=== PATIENT | female | born 1955 | race Caucasian/White ===

== ENCOUNTER 2021-01-05 15:45 | Outpatient (REF) | payer MEDICARE, SELFPAY ==
--- NOTE | ~2021-01-05 | MM_ITS ---
EXAMINATION: MM SCREENING DIGITAL BREAST TOMOSYNTHESIS, BILATERAL CLINICAL INFORMATION: Screening. Asymptomatic. The lifetime risk of breast cancer based on the Tyrer-Cuzick Model is 7%. COMPARISON: Mammography: 10/29/2018, and prior studies dating back to 06/25/2012 TECHNIQUE: Digital breast tomosynthesis is performed in both the craniocaudal and mediolateral oblique views along with computer-aided detection (CAD). Synthesized 2D images are generated from the tomosynthesis. FINDINGS: The breasts are heterogeneously dense, which may obscure small masses (ACR BI-RADS breast composition Category c). There are no significant masses, abnormal calcifications, or other abnormalities. There are shifting fibroglandular densities from year to year based on positioning. No developing density. The axilla and skin contours are unremarkable. MM/MM tomosynthesis screening BI IMPRESSION: No significant changes from prior studies. ASSESSMENT: BI-RADS 2: Benign RECOMMENDATION: Routine annual mammography screening. This patient's information was entered into a reminder system with a target due date for their next mammogram.
== END 2021-01-05 15:46 | disposition home or self-care (01) ==
LOC: HO.MAMMO 15:45
PROVIDERS: PCP Internal Medicine; Visit Provider Internal Medicine
DX: Z12.31 Encounter for screening mammogram for malignant neoplasm of breast (principal)
CPT/HCPCS: 77063; 77067

== ENCOUNTER 2022-01-08 14:19 | Outpatient (REF) | payer OTHER, SELFPAY ==
--- NOTE | ~2022-01-08 | MM_ITS ---
EXAMINATION: MM SCREENING DIGITAL BREAST TOMOSYNTHESIS, BILATERAL CLINICAL INFORMATION: Screening. Asymptomatic. The lifetime risk of breast cancer based on the Tyrer-Cuzick Model is 9%. COMPARISON: Mammography: 01/05/2021, 10/29/2018, 10/18/2017 TECHNIQUE: Digital breast tomosynthesis is performed in both the craniocaudal and mediolateral oblique views along with computer-aided detection (CAD). Synthesized 2D images are generated from the tomosynthesis. FINDINGS: The breasts are heterogeneously dense, which may obscure small masses (ACR BI-RADS breast composition Category c). There are no significant masses, abnormal calcifications, or other abnormalities. Parenchymal pattern is similar to prior studies. No developing density or architectural abnormality. The axilla are unremarkable. No significant changes. MM/MM tomosynthesis screening BI IMPRESSION: No mammographic evidence of malignancy. ASSESSMENT: BI-RADS 1: Negative RECOMMENDATION: Routine annual mammography screening. This patient's information was entered into a reminder system with a target due date for their next mammogram.
== END 2022-01-08 14:20 | disposition home or self-care (01) ==
LOC: HO.MAMMO 14:19
PROVIDERS: PCP Internal Medicine; Visit Provider Obstetrics & Gynecology
DX: Z12.31 Encounter for screening mammogram for malignant neoplasm of breast (principal)
CPT/HCPCS: 77063; 77067

== ENCOUNTER 2022-01-15 18:00 | Emergency (ER) | payer OTHER, SELFPAY ==
[2022-01-15 19:42] VITALS: BP 157/55; PULSE 72; RESP 16; TEMP 36.6; O2SAT 98; BMI 27.1
[2022-01-15 21:18] VITALS: BP 175/77; PULSE 75; RESP 14; O2SAT 98
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
[2022-01-15] MEDS: Cyclobenzaprine HCl 10 MG TABLET PO (22:03)
[2022-01-15 22:23] VITALS: BP 155/85; PULSE 76; RESP 16; O2SAT 99
== END 2022-01-15 22:25 | disposition home or self-care (01) ==
PROVIDERS: Emergency Provider Internal Medicine; PCP Internal Medicine
DX: Z04.1 Encounter for examination and observation following transport accident (principal)
CPT/HCPCS: 99283; 99284

== ENCOUNTER 2022-10-15 18:09 | Outpatient (REF) | payer OTHER, SELFPAY ==
[2022-10-15 18:54] LABS: Influenza A PCR NEGATIVE (Negative); Influenza B PCR NEGATIVE (Negative); Resp Syncy Virus RNA Qual PCR NEGATIVE (Negative); SARS COV2 PCR INHOUSE POSITIVE (Negative)
== END 2022-10-15 18:10 | disposition home or self-care (01) ==
LOC: HO.LNP 18:09
PROVIDERS: Visit Provider Internal Medicine
DX: Z20.822 Contact with and (suspected) exposure to COVID-19 (principal); R43.9 Unspecified disturbances of smell and taste
CPT/HCPCS: 0241U

== ENCOUNTER 2023-04-10 13:51 | Outpatient (REF) | payer OTHER, SELFPAY ==
--- NOTE | ~2023-04-10 | MM_ITS ---
EXAMINATION: MM SCREENING DIGITAL BREAST TOMOSYNTHESIS, BILATERAL CLINICAL INFORMATION: Screening. Asymptomatic. The lifetime risk of breast cancer based on the Tyrer-Cuzick Model is 3%. COMPARISON: Mammography: 2019. TECHNIQUE: Digital breast tomosynthesis is performed in both the craniocaudal and mediolateral oblique views along with computer-aided detection (CAD). Synthesized 2D images are generated from the tomosynthesis. FINDINGS: The breasts are heterogeneously dense, which may obscure small masses (ACR BI-RADS breast composition Category c). There are no significant masses, abnormal calcifications, or other abnormalities. MM/MM tomosynthesis screening BI IMPRESSION: No mammographic evidence of malignancy. ASSESSMENT: BI-RADS BI-RADS 1 - Negative RECOMMENDATION: Routine annual mammography screening. 1 year F/U This examination should not preclude the clinical evaluation of a suspicious palpable abnormality. This patient's information was entered into a reminder system with a target due date for their next mammogram.
== END 2023-04-10 13:52 | disposition home or self-care (01) ==
LOC: HO.MAMMO 13:51
PROVIDERS: PCP Obstetrics & Gynecology; Visit Provider Obstetrics & Gynecology
DX: Z12.31 Encounter for screening mammogram for malignant neoplasm of breast (principal)
CPT/HCPCS: 77063; 77067

== ENCOUNTER → 2023-04-10 14:15 | Outpatient (BNV) | payer OTHER, SELFPAY | PROVIDERS: PCP Obstetrics & Gynecology; Visit Provider Radiology Diagnostic Radiology | DX: Z12.31 Encounter for screening mammogram for malignant neoplasm of breast (principal) | CPT/HCPCS: 77063; 77067 ==

== ENCOUNTER 2023-08-14 01:24 | Emergency (ER) | payer OTHER, SELFPAY ==
--- NOTE | 2023-08-14 | ECG_ITS ---
Test Reason : cp Blood Pressure : / mmHG Vent. Rate : 070 BPM Atrial Rate : 070 BPM P-R Int : 170 ms QRS Dur : 110 ms QT Int : 434 ms P-R-T Axes : 083 016 062 degrees QTc Int : 468 ms Sinus rhythm with occasional Premature ventricular complexes Left bundle branch block Abnormal ECG When compared with ECG of 04-OCT-2019 18:21, No significant changes seen Referred By: Generic ED Physician Electronically Signed By:KELSEY BARLOW
--- NOTE | ~2023-08-14 | XR_ITS ---
EXAMINATION: XR CHEST CLINICAL INFORMATION: Chest pain. COMPARISON: 10/04/2019. TECHNIQUE: Frontal view of the chest was obtained. FINDINGS: No significant abnormality is noted involving the heart, lungs, mediastinum, bony thorax or soft tissues. XR/XR chest 1V IMPRESSION: Unremarkable examination.
[2023-08-14 01:36] VITALS: BP 148/70; PULSE 66; RESP 18; TEMP 36.6; O2SAT 96; BMI 25.7
--- NOTE | 2023-08-14 01:38 | ED.CHESTPAIN ---
HPI - Chest Pain General Chief Complaint: Chest Pain Stated Complaint: Chest pain Time Seen by Provider: 08/14/23 01:34 Source: patient and language interpreter Mode of arrival: ambulatory Limitations: no limitations History of Present Illness HPI narrative: 67 yo female with PMH of hypothyroidism, HTN here with c/o nighttime palpitations but no associated symptoms just saw science faculty member at [facility] with ECHO and holter but no results. She noted tonight at rest at [facility] chest tightness starting 9pm no other associated symptoms. No hx of CAD but + fam hx. She notes it does not spread anyhwere. No travel no hx of VTE MD complaint: chest pain Onset (ago): hour(s) (9pm on 08/13) Timing of current episode: episodic Prior episodes: Yes Onset: during rest Pain location: substernal Pain radiation: none Severity: mild Quality: aching Relieving factors: nothing Exacerbating factors: nothing Associated symptoms: palpitations Treatment prior to arrival: none Related Data Home Medications Medication Instructions Recorded Confirmed clonazepam 1 mg tablet 1 mg PO BID PRN 12/25/22 fluticasone propionate 50 2 spray intranasal DAILY 12/25/22 mcg/actuation nasal spray,suspension latanoprost 0.005 % eye drops 1 drp ophthalmic (eye) BEDTIME 12/25/22 levothyroxine 25 mcg tablet 25 mcg PO DAILY 12/25/22 levothyroxine 50 mcg tablet 50 mcg PO DAILY 12/25/22 lisinopril 5 mg tablet 5 mg PO DAILY 12/25/22 loratadine 10 mg tablet 10 mg PO DAILY PRN allergies 12/25/22 mirtazapine 7.5 mg tablet 7.5 mg PO BEDTIME 12/25/22 Previous Rx's Medication Instructions Recorded azithromycin 250 mg tablet See Rx Instructions PO .COMPLEX #6 10/15/22 (Zithromax) tabs cefuroxime axetil 500 mg tablet 500 mg PO Q12H 7 days #14 tabs 12/25/22 erythromycin 5 mg/gram (0.5 %) eye 1 appl ophthalmic-Right Q4H 7 days 12/25/22 ointment #3.5 grams Allergies Allergy/AdvReac Type Severity Reaction Status Date / Time aspirin Allergy Mild SWELLING Unverified 12/25/22 15:47 codeine Allergy Mild SWELLING Unverified 12/25/22 15:47 Review of Systems Review of Systems: Constitutional : No Weight loss, No Fever, No Chills ENT/Mouth : No sore throat, No Rhinorrhea Eyes: No Eye Pain, No Swelling Cardiovascular : pos Chest Pain, no SOB, no Dyspnea on Exertion, No Orthopnea, No Edema, pos Palpitations Respiratory : No Cough, No Sputum Gastrointestinal : pos Nausea, No Vomiting, No Diarrhea, No abdominal Pain, No Hematochezia, No Melena Genitourinary : No Dysuria, No Urinary Frequency Musculoskeletal : No joint pain, No Myalgias, No Joint Swelling Skin : No Skin Lesions, No rash Neuro : No Weakness, No Numbness, No Dizziness, No Headache Psych : No Anxiety/Panic, No Depression Heme/Lymph: No Bruising, No Lymphadenopathy Endocrine : No Polyuria, No Polydipsia All other systems reviewed and are negative [facility] Past Medical History Source: old records reviewed Medical History Hypothyroidism HTN (hypertension) Social History Social History Patient Tobacco Use Status: Never used Tobacco Smoked in Last 30 Days: No Use of substances other than those prescribed or required for medical reasons: No Advance Directives: No Advance Directives Information Provided: Yes Physical Exam Vital Signs: Vital Signs: Last Vital Signs Temp 97.8 F 08/14/23 01:36 Pulse 64 08/14/23 03:05 Resp 15 08/14/23 03:05 BP 163/79 H 08/14/23 03:05 Pulse Ox 95 08/14/23 03:05 O2 Del Method Room Air 08/14/23 03:05 BMI result Body Mass Index 25.7 Appearance: Alert. Oriented X3. No acute distress. Eyes: Pupils equal, round and reactive to light. ENT: Pharynx normal. Neck: Normal inspection. Neck supple. CVS: Normal heart rate and rhythm. Pulses normal. Respiratory: No respiratory distress. Breath sounds normal. Abdomen: Soft and nontender. Skin: Skin warm and dry. Normal skin color. Normal skin turgor. Extremities: No lower extremity edema. No calf ttp Neuro: Oriented X 3. No motor deficit. No sensory deficit. Course Course Course Narrative: son came to get patient and relayed that he thinks it was food tonight as she was eating heavy spicy food like chorizo and she never does that. Medical Decision Making Medical Decision Making [facility] Narrative: 67 yo female with PMH of hypothyroidism, HTN being worked up for palpitations now presents with new chest pain - no travel or hx of VTE. no associated symptoms, no known CAD. Will obtain 6h trop, EKG, CXR, lytes. Will try to get records from [facility] - somewhat atypical chest pain Differential Diagnosis Differential Diagnoses: The differential diagnosis associated with the presentation includes chest pain, atypical chest pain, lyte abnormality Admission/Observation Consideration of admission/observation: Escalation of care including admission/observation considered 6hr trop flat, has outpatinet cardiology follow up, EKG nonspecific stable for DC Lab Data [facility] Lab Attestation statement: I reviewed the patient's lab results. 08/14/23 02:57 08/14/23 02:57 Labs: Lab Results 08/14/23 Range/Units 02:57 WBC 8.3 (4.8-10.8) X10*3/uL RBC 4.09 L (4.20-5.50) X10*6/uL Hgb 11.5 L (12.0-16.0) g/dl Hct 35.0 L (37.0-47.0) % MCV 85.6 (80.0-98.0) fL MCH 28.1 (27.0-33.0) pg MCHC 32.9 (31.0-35.0) g/dl RDW 13.6 (11.0-16.0) % Plt Count 170 (160-400) X10*3/uL MPV 10.5 (9.4-12.3) fL Immature Gran % (Auto) 0.1 (0.0-0.4) % Neut % (Auto) 65.1 (45-73) % Lymph % (Auto) 25.9 (20-40) % [place] % (Auto) 8.0 (2-11) % Eos % (Auto) 0.7 (0-4) % Baso % (Auto) 0.2 (0-2) % Lymph # (Auto) 2.2 (1.2-4.9) X10*3/uL [place] # (Auto) 0.7 (0.1-1.2) X10*3/uL Eos # (Auto) 0.1 (0.0-0.4) X10*3/uL Baso # (Auto) 0.0 (0.0-0.2) X10*3/uL Abs Immat Gran (auto) 0.01 (0.00-0.03) X10*3/uL Absolute Neuts (auto) 5.4 (2.0-8.3) x10*3/uL Absolute Nucleated RBC 0.000 (0.0-0.012) X10*3/uL Nucleated RBC % (auto) 0.0 (0.0-0.2) /100WBC Sodium 143 (135-145) mmol/L Potassium 3.6 (3.3-5.1) mmol/L Chloride 107 (96-108) mmol/L Carbon Dioxide 30 H (22-29) mmol/L Anion Gap 10 L (12-20) BUN 10 (9-16) mg/dL Creatinine 0.73 (0.5-1.4) mg/dL Estim Creat Clear Calc 66.3 Estimated GFR > 60 Random Glucose 97 (60-115) mg/dL Calcium 9.7 (8.4-10.2) mg/dL Magnesium 2.1 (1.6-2.6) mg/dL Troponin I High Sens < 2.7 (<3.5-17.0) ng/L TSH 1.81 (0.32-4.0) uIU/mL Independent Interpretation I performed an independent interpretation of an: EKG and Plain X-Ray (normal ) Interpretation: Rate: 70 Rhythm: NSR with occ PVCs [place]: normal Normal P waves. Normal JAIME. Normal QRS complex. Poor R wave progression ST T wave : no HEIDI, nonspecific ST T wave changes in lateral leads qTC: normal prior studies: no prior The study has been interpreted contemporaneously by me. . Radiology Impression Discussion of test interpretation with radiology: I have reviewed the radiologist's reading. Discharge Plan Discharge Clinical Impression: Atypical chest pain, Heart palpitations Patient Disposition: Home, Self-Care Instructions: Chest Pain (ED), Heart Palpitations (ED) Additional Instructions: your tests for electrolytes, heart blood tests and chest xray were normal and reassuring. please call and follow up with your science faculty member this week. return for any worsening symptoms or concerns. dominick pruebas de electrolitos, an?lisis de niurka del coraz?n y radiograf?a de t?rax fueron normales y tranquilizadoras. Llame y nestor un seguimiento con jensen cardi?logo esta semana. Regrese si tiene alg?n s?ntoma o inquietud que empeore. Prescriptions: No Action azithromycin [Zithromax] 250 mg tablet See Rx Instructions PO .COMPLEX Qty: 6 0RF Rx Instructions: take 500 mg today (day 1), then 250 mg for 4 days (days 2-5) PO clonazepam 1 mg tablet 1 mg PO BID PRN fluticasone propionate 50 mcg/actuation spray,suspension 2 spray intranasal DAILY latanoprost 0.005 % drops 1 drp ophthalmic (eye) BEDTIME loratadine 10 mg tablet 10 mg PO DAILY PRN (Reason: allergies) lisinopril 5 mg tablet 5 mg PO DAILY levothyroxine 50 mcg tablet 50 mcg PO DAILY mirtazapine 7.5 mg tablet 7.5 mg PO BEDTIME levothyroxine 25 mcg tablet 25 mcg PO DAILY erythromycin 5 mg/gram (0.5 %) ointment 1 appl ophthalmic-Right Q4H 7 Days Qty: 3.5 1RF Rx Instructions: Apply to right eye every 4 hours while awake. cefuroxime axetil 500 mg tablet 500 mg PO Q12H 7 Days Qty: 14 0RF Interventions: ED Discharge Assessment Last Done: 08/14/23 03:58 Discharge Date/Time: 08/14/23 03:59 Print Language: Azerbaijani
--- NOTE | 2023-08-14 02:04 | PC.NURSE ---
pt a&o, pt change into hospital attire, placed on bedside monitor. Labs collected and sent.
[2023-08-14 03:03] LABS: MANUAL DIFF FLAG NO
[2023-08-14 03:05] VITALS: BP 163/79; PULSE 64; RESP 15; O2SAT 95
[2023-08-14 03:09] LABS: Basophils Percent Auto 0.2 % (0-2); Eosinophils Absolute Auto 0.1 X10*3/uL (0.0-0.4); Eosinophils Percent Auto 0.7 % (0-4); Hemoglobin 11.5 g/dl (12.0-16.0); Imm Gran Abs Auto 0.01 X10*3/uL (0.00-0.03); Imm Gran Pct Auto 0.1 % (0.0-0.4); Lymphocytes Absolute Auto 2.2 X10*3/uL (1.2-4.9); Lymphocytes Percent Auto 25.9 % (20-40); Mean Corpuscular HGB Conc 32.9 g/dl (31.0-35.0); Mean Corpuscular Hemoglobin 28.1 pg (27.0-33.0); Mean Corpuscular Volume 85.6 fL (80.0-98.0); Mean Platelet Volume 10.5 fL (9.4-12.3); Monocytes Absolute Auto 0.7 X10*3/uL (0.1-1.2); Neutrophils Absolute Auto 5.4 x10*3/uL (2.0-8.3); Neutrophils Percent Auto 65.1 % (45-73); Platelet Count 170 X10*3/uL (160-400); Red Blood Count 4.09 X10*6/uL (4.20-5.50); Red Cell Distribution Width 13.6 % (11.0-16.0); White Blood Count 8.3 X10*3/uL (4.8-10.8)
[2023-08-14 03:17] LABS: Anion Gap 10 (12-20); Blood Urea Nitrogen 10 mg/dL (9-16); Calcium 9.7 mg/dL (8.4-10.2); Carbon Dioxide 30 mmol/L (22-29); Chloride 107 mmol/L (96-108); Creatinine Clr Calc Pharmacy 66.3; Estimated Glomerular Filt Rate > 60; Glucose Random 97 mg/dL (60-115); Potassium 3.6 mmol/L (3.3-5.1); Sodium 143 mmol/L (135-145)
[2023-08-14 03:25] LABS: Magnesium 2.1 mg/dL (1.6-2.6)
[2023-08-14 03:27] LABS: Troponin-I High Sensitivity < 2.7 ng/L (<3.5-17.0)
[2023-08-14 03:39] LABS: TSH reflex Free T4 1.81 uIU/mL (0.32-4.0)
--- NOTE | 2023-08-14 03:57 | PC.NURSE ---
Reviewed discharge instruction with pt, pt verbalized understanding, pt denies any chest pain at this time upon discharge, pt has a steady gait.
== END 2023-08-14 03:59 | disposition home or self-care (01) ==
PROVIDERS: Emergency Provider Emergency Medicine
DX: R07.89 Other chest pain (principal); R00.2 Palpitations; I10 Essential (primary) hypertension; Z79.899 Other long term (current) drug therapy
CPT/HCPCS: 36415; 71045; 80048; 83735; 84443; 84484; 85025; 93005; 99283; 99285

== ENCOUNTER → 2023-08-14 01:30 | Outpatient (BNV) | payer OTHER, SELFPAY | PROVIDERS: Emergency Provider Emergency Medicine; Visit Provider Internal Medicine | DX: I49.3 Ventricular premature depolarization (principal); R94.31 Abnormal electrocardiogram [ECG] [EKG] | CPT/HCPCS: 93010 ==

== ENCOUNTER 2024-04-14 12:48 | Outpatient (REF) | payer OTHER, SELFPAY ==
--- NOTE | ~2024-04-14 | MM_ITS ---
EXAMINATION: BONE DENSITOMETRY CLINICAL INDICATION: Asymptomatic menopausal state. COMPARISON: Baseline BD dated 05/11/2010. TECHNIQUE: Using a [employer] DXA System (software version: 13.1) manufactured by [employer], dual-energy x-ray absorptiometry was performed of the lumbar spine and left hip. The images are of good technical quality. Summary results are attached. FINDINGS: LEFT FEMUR, NECK: Current: BMD 0.721 g/cm2, Z-score -0.6, T-score -2.3, osteopenia. Baseline: BMD 0.895 g/cm2. LEFT FEMUR, TOTAL: Current: BMD 0.851 g/cm2, Z-score 0.2, T-score -1.2, osteopenia, 12.0% decrease from baseline (<5% change is not significant). Baseline: BMD 0.967 g/cm2. AP SPINE L1-L4 (excluding L3): The data of L1-L4 has been changed to exclude the L3 vertebral body, because degenerative sclerosis at this level may cause overestimation of lumbar spine density. Current: BMD 1.127 g/cm2, Z-score 1.3, T-score -0.4, normal, 9.3% decrease from baseline (<5% change is not significant). Baseline: BMD 1.243 g/cm2. IDENTIFIED RISK FACTORS: Early menopause, secondary osteoporosis. HISTORY OF FRACTURE: None listed. MEDICATIONS: Multivitamin. MM/XR DEXA axial skeleton IMPRESSION: 1. DIAGNOSIS: Osteopenia based on the lowest T-score value of -2.3 in the femoral neck applying World Health Organization criteria. 2. 10-YEAR FRACTURE RISK PREDICTION, FRAX: Major osteoporotic fracture (clinical spine, forearm, hip or shoulder) 7.8%. Hip fracture 1.8%. 3. Treatment Recommendations: NOF guidelines recommend consideration for treatment in postmenopausal women and men age 50 and older presenting with the following: -A hip or vertebral (clinical or morphometric) fracture. -T-score less than or equal to -2.5 at the femoral neck or spine after appropriate evaluation to exclude secondary causes. -Low bone mass at the hip or spine and a 10-year fracture probability by FRAX of greater than or equal to 3% for hip fracture or greater than or equal to 20% for major osteoporotic fracture based on the [place] adapted WHO algorithm. 4. Other Recommendations: All treatment decisions require clinical judgment and consideration of individual patient factors, including patient preferences, comorbidities, previous drug use, risk factors not captured in the FRAX model (e.g. frailty, falls, vitamin D deficiency, increased bone turnover, interval significant decline in bone density) and possible under or overestimation of fracture risk by FRAX. Additional medical evaluation for secondary cause of low bone mineral density may be appropriate. FUTURE SCAN RECOMMENDATION: People with diagnosed cases of osteoporosis or at high risk for fracture should have regular bone mineral density tests. For patients eligible for Medicare, routine testing is allowed once every 2 years. The testing frequency can be increased to one year for patients who have rapidly progressing disease, those who are receiving or discontinuing medical therapy to restore bone mass, or have additional risk factors.
== END 2024-04-14 12:49 | disposition home or self-care (01) ==
LOC: HO.MAMMO 12:48
PROVIDERS: Visit Provider Obstetrics & Gynecology
DX: Z12.31 Encounter for screening mammogram for malignant neoplasm of breast (principal); Z13.820 Encounter for screening for osteoporosis; Z78.0 Asymptomatic menopausal state
CPT/HCPCS: 77063; 77067; 77080

== ENCOUNTER → 2024-04-14 13:15 | Outpatient (BNV) | payer OTHER, SELFPAY | PROVIDERS: Visit Provider Radiology Diagnostic Radiology | DX: Z12.31 Encounter for screening mammogram for malignant neoplasm of breast (principal) | CPT/HCPCS: 77063; 77067 ==

== ENCOUNTER 2024-09-05 12:46 | Emergency (ER) | payer OTHER, SELFPAY ==
[2024-09-05 12:52] VITALS: BP 133/63; PULSE 67; RESP 20; TEMP 35.8; O2SAT 99; BMI 26.3
--- NOTE | 2024-09-05 12:55 | ECG_ITS ---
Test Reason : right chest pain Blood Pressure : / mmHG Vent. Rate : 063 BPM Atrial Rate : 063 BPM P-R Int : 168 ms QRS Dur : 120 ms QT Int : 458 ms P-R-T Axes : 064 010 -12 degrees QTc Int : 468 ms Sinus rhythm with occasional Premature ventricular complexes Left bundle branch block Abnormal ECG When compared with ECG of 14-AUG-2023 01:30, No significant changes seen Referred By: Sana Tucker Electronically Signed By:Ollie Martínez
--- NOTE | 2024-09-05 12:56 | ED.CHESTPAIN ---
HPI - Chest Pain General Chief Complaint: Arrhythmia/Palpitations Stated Complaint: told to get cardiac bloodwork Time Seen by Provider: 09/05/24 16:10 Source: patient and family Mode of arrival: ambulatory Limitations: no limitations History of Present Illness ED Provider: HPI narrative: Patient with no known coronary artery disease does have history of hypotension comes here for burning sensation of the left side of the chest for last 5 days especially on lying down no exertional dyspnea or pain patient does have history of anxiety also feels palpitation without any dizziness Related Data Home Medications ?Medication ?Instructions ?Recorded ?Confirmed clonazepam 1 mg tablet 1 mg PO BID PRN 12/25/22 fluticasone propionate 50 2 spray intranasal DAILY 12/25/22 mcg/actuation nasal spray,suspension latanoprost 0.005 % eye drops 1 drp ophthalmic (eye) BEDTIME 12/25/22 levothyroxine 25 mcg tablet 25 mcg PO DAILY 12/25/22 levothyroxine 50 mcg tablet 50 mcg PO DAILY 12/25/22 lisinopril 5 mg tablet 5 mg PO DAILY 12/25/22 loratadine 10 mg tablet 10 mg PO DAILY PRN allergies 12/25/22 mirtazapine 7.5 mg tablet 7.5 mg PO BEDTIME 12/25/22 Previous Rx's ?Medication ?Instructions ?Recorded azithromycin 250 mg tablet See Rx Instructions PO .COMPLEX #6 10/15/22 (Zithromax) tabs cefuroxime axetil 500 mg tablet 500 mg PO Q12H 7 days #14 tabs 12/25/22 erythromycin 5 mg/gram (0.5 %) eye 1 appl ophthalmic-Right Q4H 7 days 12/25/22 ointment #3.5 grams Allergies Allergy/AdvReac Type Severity Reaction Status Date / Time aspirin Allergy Mild SWELLING Verified 09/05/24 12:56 codeine Allergy Mild SWELLING Verified 09/05/24 12:56 Review of Systems Review of Systems: Yes all other systems are reviewed and are negative [facility] Past Medical History Medical History Hypothyroidism HTN (hypertension) Social History Social History Patient Tobacco Use Status: Never used Tobacco Advance Directives: No Advance Directives Information Provided: Yes Do you have a plan to hurt others: No Plan Physical Exam Vital Signs: Vital Signs: Last Vital Signs Temp 96.5 F L 09/05/24 16:52 Pulse 67 09/05/24 16:52 Resp 20 09/05/24 16:52 BP 133/63 09/05/24 16:52 Pulse Ox 99 09/05/24 16:52 O2 Del Method Room Air 09/05/24 16:52 BMI result Body Mass Index 26.3 Appearance: Alert. Oriented X3. No acute distress. Eyes: PERRLA, No Nystagmus ENT: Pharynx normal. Oral Mucosa moist Neck: Normal inspection. Neck supple. CVS: Normal heart rate and rhythm. Pulses normal. Occasional premature beats Respiratory: No respiratory distress. Equal air entry bilateral, no wheezing/rales/rhonchi Abdomen: Soft and nontender. Bowel sounds are present, no mass palpable, no CVA tenderness Skin: Skin warm and dry. Normal skin color. Normal skin turgor. Extremities: No lower extremity edema. No calf tenderness Neuro: Oriented X 3. No motor deficit. No sensory deficit.No cerebellar signs , cranial nerves II-XII intact Course Course Course Narrative: This is a Rapid Medical Examination (RME) performed by Syhla Tucker PA-C in triage. Full HPI, ROS, assessment and treatment plan per primary provider in the Main ED. 68 yo female hx of hypothyroidism and HTN here w/ daughter for evaluation of burning pain to the right side of her chest when she lays down for bed at night. assoc palpitations. EMS was called to her home last night - normal ekg, advised to come to ED for troponin testing however was told it was not emergent . denies any symptoms at present. hx of chickenpox as a child. Did receive her shingles vaccination. She has not noticed any rash to the area. + unable to fully examine patient d/t body suit. overall well appearing. Plan: ekg, labs, trop Medical Decision Making Medical Decision Making [facility] Narrative: Patient has atypical chest pain with that happen hole in the nighttime when she lays down with anxiety and palpitation likely atypical noncardiac chest pain with PVCs which has been there in the past also. 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 09/05/24 13:11 09/05/24 13:11 Labs: Lab Results 09/05/24 Range/Units 13:11 WBC 5.6 (4.8-10.8) X10*3/uL RBC 4.27 (4.20-5.50) X10*6/uL Hgb 12.0 (12.0-16.0) g/dl Hct 37.0 (37.0-47.0) % MCV 86.7 (80.0-98.0) fL MCH 28.1 (27.0-33.0) pg MCHC 32.4 (31.0-35.0) g/dl RDW 13.7 (11.0-16.0) % Plt Count 171 (160-400) X10*3/uL MPV 10.3 (9.4-12.3) fL Immature Gran % (Auto) 0.2 (0.0-0.4) % Neut % (Auto) 54.0 (45-73) % Lymph % (Auto) 37.0 (20-40) % Norton % (Auto) 7.5 (2-11) % Eos % (Auto) 0.9 (0-4) % Baso % (Auto) 0.4 (0-2) % Lymph # (Auto) 2.1 (1.2-4.9) X10*3/uL Norton # (Auto) 0.4 (0.1-1.2) X10*3/uL Eos # (Auto) 0.1 (0.0-0.4) X10*3/uL Baso # (Auto) 0.0 (0.0-0.2) X10*3/uL Abs Immat Gran (auto) 0.01 (0.00-0.03) X10*3/uL Absolute Neuts (auto) 3.0 (2.0-8.3) x10*3/uL Absolute Nucleated RBC 0.000 (0.0-0.012) X10*3/uL Nucleated RBC % (auto) 0.0 (0.0-0.2) /100WBC Sodium 140 (135-145) mmol/L Potassium 3.8 (3.3-5.1) mmol/L Chloride 109 H (96-108) mmol/L Carbon Dioxide 26 (22-29) mmol/L Anion Gap 9 L (12-20) BUN 15 (9-16) mg/dL Creatinine 0.78 (0.5-1.4) mg/dL Estim Creat Clear Calc 64.2 Estimated GFR > 60 Random Glucose 92 (60-115) mg/dL Calcium 9.0 D (8.4-10.2) mg/dL Magnesium 2.1 (1.6-2.6) mg/dL Total Bilirubin 0.5 (0.0-1.0) mg/dL AST 23 (5-31) U/L ALT 17 (0-31) U/L Alkaline Phosphatase 54 (39-117) U/L Troponin I High Sens < 2.7 (<3.5-17.0) ng/L Total Protein 7.0 (6.5-8.0) g/dL Albumin 4.1 (3.5-5.0) g/dL Independent Interpretation I performed an independent interpretation of an: EKG Interpretation: Normal sinus rhythm with heart rate 63 beats per minute occasional PVCs poor progression of R-wave no acute STT wave changes no acute ischemia Discharge Plan Discharge Clinical Impression: Chest pain, Ventricular premature beats Patient Disposition: Home, Self-Care Instructions: Chest Pain (ED), Premature Ventricular Contractions (ED) Additional Instructions: Decrease caffeine intake 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 for further management including Holter monitoring and stress test At this time does not show evidence of cardiac damage Prescriptions: No Action azithromycin [Zithromax] 250 mg tablet See Rx Instructions PO .COMPLEX Qty: 6 0RF Rx Instructions: take 500 mg today (day 1), then 250 mg for 4 days (days 2-5) PO clonazepam 1 mg tablet 1 mg PO BID PRN fluticasone propionate 50 mcg/actuation spray,suspension 2 spray intranasal DAILY latanoprost 0.005 % drops 1 drp ophthalmic (eye) BEDTIME loratadine 10 mg tablet 10 mg PO DAILY PRN (Reason: allergies) lisinopril 5 mg tablet 5 mg PO DAILY levothyroxine 50 mcg tablet 50 mcg PO DAILY mirtazapine 7.5 mg tablet 7.5 mg PO BEDTIME levothyroxine 25 mcg tablet 25 mcg PO DAILY erythromycin 5 mg/gram (0.5 %) ointment 1 appl ophthalmic-Right Q4H 7 Days Qty: 3.5 1RF Rx Instructions: Apply to right eye every 4 hours while awake. cefuroxime axetil 500 mg tablet 500 mg PO Q12H 7 Days Qty: 14 0RF Interventions: ED Discharge Assessment Last Done: 09/05/24 16:52 Discharge Date/Time: 09/05/24 16:52 Print Language: Indian
[2024-09-05 13:18] LABS: MANUAL DIFF FLAG NO
[2024-09-05 13:19] LABS: Basophils Percent Auto 0.4 % (0-2); Eosinophils Absolute Auto 0.1 X10*3/uL (0.0-0.4); Eosinophils Percent Auto 0.9 % (0-4); Imm Gran Abs Auto 0.01 X10*3/uL (0.00-0.03); Imm Gran Pct Auto 0.2 % (0.0-0.4); Lymphocytes Absolute Auto 2.1 X10*3/uL (1.2-4.9); Mean Corpuscular HGB Conc 32.4 g/dl (31.0-35.0); Mean Corpuscular Hemoglobin 28.1 pg (27.0-33.0); Mean Corpuscular Volume 86.7 fL (80.0-98.0); Mean Platelet Volume 10.3 fL (9.4-12.3); Monocytes Absolute Auto 0.4 X10*3/uL (0.1-1.2); Monocytes Percent Auto 7.5 % (2-11); Platelet Count 171 X10*3/uL (160-400); Red Blood Count 4.27 X10*6/uL (4.20-5.50); Red Cell Distribution Width 13.7 % (11.0-16.0); White Blood Count 5.6 X10*3/uL (4.8-10.8)
[2024-09-05 13:36] LABS: Alanine Aminotransferase 17 U/L (0-31); Albumin Level 4.1 g/dL (3.5-5.0); Anion Gap 9 (12-20); Aspartate Amino Transferase 23 U/L (5-31); Bilirubin Total 0.5 mg/dL (0.0-1.0); Blood Urea Nitrogen 15 mg/dL (9-16); Carbon Dioxide 26 mmol/L (22-29); Chloride 109 mmol/L (96-108); Creatinine Clr Calc Pharmacy 64.2; Estimated Glomerular Filt Rate > 60; Glucose Random 92 mg/dL (60-115); Magnesium 2.1 mg/dL (1.6-2.6); Potassium 3.8 mmol/L (3.3-5.1); Sodium 140 mmol/L (135-145)
[2024-09-05 13:57] LABS: Alkaline Phosphatase 54 U/L (39-117); Troponin-I High Sensitivity < 2.7 ng/L (<3.5-17.0)
[2024-09-05 16:52] VITALS: BP 133/63; PULSE 67; RESP 20; TEMP 35.8; O2SAT 99
== END 2024-09-05 16:52 | disposition home or self-care (01) ==
PROVIDERS: Physician Assistant Medical; Emergency Provider Internal Medicine; PCP Internal Medicine
DX: R07.9 Chest pain, unspecified (principal); I49.3 Ventricular premature depolarization; I10 Essential (primary) hypertension; E03.9 Hypothyroidism, unspecified; Z79.899 Other long term (current) drug therapy
CPT/HCPCS: 36415; 80053; 83735; 84484; 85025; 93005; 99283

== ENCOUNTER → 2024-09-05 12:55 | Outpatient (BNV) | payer OTHER, SELFPAY | PROVIDERS: Emergency Provider Internal Medicine; PCP Internal Medicine; Visit Provider Internal Medicine Cardiovascular Disease | DX: I49.3 Ventricular premature depolarization (principal) | CPT/HCPCS: 93010 ==

== ENCOUNTER 2025-04-20 12:59 | Outpatient (REF) | payer OTHER, SELFPAY ==
--- OUTSIDE RECORDS SUMMARY | 2025-04-20 13:46 | XMS_ITS | Clinical Summary ---
Author Organization [facility] [address] [place] [address] [place] [phone] Phone Care Team Providers Care [employer] Name Role Phone Elida Garcia MD Primary Care Prov ider Allergies Active Allergy Reactions Criticality Noted Date Comments Amlodipine Other 12/18/2017 Itchy, swollen eyes Aspirin 10/05/2005 Codeine Numbness 10/17/2006 Atorvastatin 09/17/2024 Naproxen Swelling Medium 05/06/2014 Facial swelling, TOLERATES NABUMETONE Clopidogrel 09/17/2024 Fatigue, weak, no strength Simvastatin 02/21/2012 Eyelid swelling Medications mirtazapine (REMERON) 7.5 mg tablet Take 1 tablet (7.5 mg total) by mouth at bedtime. 3 Active clonazePAM (KlonoPIN) 1 mg tablet Take 1 tablet (1 mg total) by mouth at bedtime. 0 Active OMEGA-3 FATTY ACIDS ORAL Take 1 capsule by mouth 1 (one) time each day. Active levothyroxine (SYNTHROID, LEVOTHROID) 50 mcg tablet TAKE 1 TABLET BY MOUTH EVERY DAY 90 tablet 1 5 Active latanoprost (XALATAN) 0.005 % ophthalmic solution INSTILL ONE DROP IN LEFT EYE EVERY NIGHT. 5 Active loratadine (CLARITIN) 10 mg tablet TAKE 1 TABLET BY MOUTH DAILY NEEDED FOR ALLERGIES. 90 tablet 5 Active fluticasone propionate (FLONASE) 50 mcg/actuation nasal spray SPRAY 2 SPRAYS INTO EACH NOSTRIL EVERY DAY SHAKE GENTLY. CLEAN TIP AND REPLACE CAP AFTER USE. 16 mL 1 5 Active lisinopriL (PRINIVIL,ZEST RIL) 5 mg tablet TAKE 1 TABLET BY MOUTH EVERY DAY 90 tablet 1 5 Active lisinopriL (PRINIVIL,ZEST RIL) 5 mg tablet TAKE 1 TABLET BY MOUTH EVERY DAY 90 tablet 1 5 04/19/20 25 Discontinued Active Problems Problem Noted Date Diagnosed Date History of COVID-19 06/19/2024 Coronary artery calcification 11/05/2023 Overview (09/17/2024): The patient underwent a pharmacological nuclear stress test completed October 2023 which showed normal myocardial perfusion imaging with no ischemia. Normal LV function with an LVEF 65%. The study also noted moderate coronary calcification on CT scan. Assessment & Plan (09/17/2024 5:38 PM EST): No clear symptoms of angina. She has never actually had a cardiac event either so I do not feel strongly about pushing antiplatelet therapy. However, lipid-lowering therapy would be extremely important. She is in agreement that she would like to be on something but she has not been able to tolerate everything we have tried so far. As a last ditch effort, I am going to try bempedoic acid 180 mg daily. I reviewed side effects with her for which she verbalized understanding and wishes to proceed. Will plan to check liver enzymes in 1 month. Would plan to check fasting lipid profile in 3 months and then follow-up. If this is not tolerated, we may have to consider the injectable medications-either PCSK9 inhibitors or ideally inclisiran which would only require a monitored injection once every 6 months ultimately after a 3-month injection and then another 3-month injection. Orders: ECG 12 lead Hepatic function panel; Future Abnormal echocardiogram 08/21/2023 Overview (06/19/2024): Last Assessment & Plan: The patient had an echocardiogram May 2023 which showed normal left ventricular chamber size and LVEF of 50 to 55%. It also showed mild concentric LVH and hypokinesis of the basal to mid inferior septal wall and basal inferior wall. At this point, we will update an exercise nuclear stress test to evaluate for ischemia as a cause. Chest pain 08/21/2023 Assessment & Plan (09/17/2024 5:38 PM EST): Atypical and possibly side effect of medications. Based on the report from [facility] ER, could also be heartburn related. She ruled out with serial cardiac enzymes during her most recent ER visit. She recently had a stress test so I do not feel strongly about pursuing additional cardiac workup at this time. Palpitations 03/04/2023 Assessment & Plan (09/17/2024 5:38 PM EST): Today she reports that this may have actually been a reaction to medications as she has not had significant recurrence since coming off of offending medications. Osteopenia 05/06/2019 Hyperlipidemia 11/12/2011 Overview (06/19/2024): Last Assessment & Plan: Patient has a history of hyperlipidemia as well as a history of coronary calcifications. We discussed this in depth today. We discussed that her goal LDL should ideally be less than 70 given the findings on the nuclear stress test. Her last LDL cholesterol in July 2023 was noted to be 107. The patient is taking omega 3 fatty acids and follows a very strict low-fat low-salt diet already. She is in agreement to initiate Zetia 10 mg orally daily to help reduce her cholesterol levels to be at goal. I have given her a lab slip to update a fasting lipid panel in 8 to 12 weeks to reassess her cholesterol levels. Assessment & Plan (11/30/2024 1:41 PM EDT): Orders: Lipid panel with reflex to direct LDL; Future Assessment & Plan (08/03/2024 9:13 AM EST): Patient with HLD and coronary artery calcifications. Cardiology recommended to take plavix and atorvastatin, however patient self discontinued this medications, states they make her feel very weak and she does not want to take medications for all her life. I discussed with her her CV risk and the importance of prevention. She agrees to try pravastatin, which is not ideal as she is candidate for hig intensity, but she states she does not tolerate other medications. 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 Orders: Lipid panel with reflex to direct LDL; Future Nonalcoholic fatty liver disease 02/16/2010 Overview (06/19/2024): With mild elevation of liver enzymes Obesity 11/15/2009 Hypothyroidism 11/19/2008 Assessment & Plan (11/30/2024 1:41 PM EDT): Assessment & Plan (08/03/2024 9:13 AM EST): Currently on levothyroxine 50mcg. Last TSH 1.38 in February/2024. Will continue same dose. Will recheck levels before her next visit. Orders: Thyroid stimulating hormone; Future Subclinical hypothyroidism 01/29/2008 Insomnia 01/15/2008 Overview (06/19/2024): F[facility]u [facility]. Anxiety 05/13/2007 Benign essential hypertension 01/27/2007 Overview (06/19/2024): Last Assessment & Plan: Patient's blood pressure is well-controlled today with a reading 110/68. She continues on lisinopril and metoprolol as prescribed. Assessment & Plan (11/30/2024 1:41 PM EDT): Assessment & Plan (09/17/2024 5:38 PM EST): Well-controlled today on current medications of lisinopril 5 mg-continue. Assessment & Plan (08/03/2024 9:13 AM EST): BP is well controlled on Lisinopril 5mg day. Recommeded to follow a low salt diet and exercise regularly. Orders: Comprehensive metabolic panel; Future Allergic rhinitis 12/27/2006 Encounters Date Type Department Care Team Description 03/11/2025 Telephone [facility] [address] [place] [address] Carla Dimas NP No Show from Last 3 Months Immunizations Name Administration Dates Next Due Pneumococcal conjugate 13 va lent (Prevnar 13, PCV13) 2mo and older 01/20/2019 Pneumococcal conjugate 20 va lent (Prevnar 20, PCV 20) 2mo and older 01/03/2023 Pneumococcal polysaccharide 23 valent (Pneumovax 23) 2yo and older 05/10/2015 Tdap Tetanus diptheria acell ular pertussis (Boostrix; Adacel) 7yo and older 01/03/2023,07/23/2011 Zoster Live 04/20/2015 Surgical History Surgery Date Site/Laterality Comments COLONOSCOPY 10/25/2008 PROCEDURE: LA COLONOSCOPY STOMA DX INCLUDING COLLJ SPEC SPX; COMMENT: Up to cecum, regular preparation, sigmoid diverticulosis, otherwise normal colon exam ESOPHAGOGASTRODUODENOSCOPY 02/01/2011 PROCEDURE: LA ESOPHAGOGASTRODUODENOSCOPY TRANSORAL DIAGNOSTIC; COMMENT: normal; pos H. pylori APPENDECTOMY PROCEDURE: HISTORICAL APPENDECTOMY Medical History Medical History Date Comments Essential hypertension, benign 01/27/2007 D X:Essential hypertension, benign Allergic rhinitis 12/27/2006 DX:Allergic rh initis Anxiety 05/13/2007 DX:Anxiety History of Helicobacter pylo ri infection 06/05/2011 DX:History of Helicobacter p ylori infection; COMMENT: Triple therapy with treatment failure. Secondary treatment successful. Stool antigen test 06/20/11 - negative. Hyperlipidemia 11/12/2011 DX:Hyperlipidemi a Hypothyroidism 11/19/2008 DX:Hypothyroidis m HTN (hypertension) 07/23/2011 DX:HTN (hyper tension) Insomnia 01/15/2008 DX:Insomnia; COM MENT: F/u [facility]. Nonalcoholic fatty liver disease 02/16/2010 DX:Nonalcoholic fatty liver disease Obesity 11/15/2009 DX:Obesity Benzodiazepine dependence (C MS/HCC V24, CMS/HCC V28) 01/20/2019 DX:Benzodiazepine dependence (HCC) Osteopenia 05/06/2019 DX:Osteopenia Covid-19 DX:COVID-19 Family History Medical History Relation Name Comments Coronary artery disease Brother 1 at a ge 50 Coronary artery disease Brother 2 Coronary artery disease Brother 3 Coronary artery disease Brother 4 Coronary artery disease Father Coronary artery disease Sister at a ge 60 Relation Name Status Comments Brother 1 Alive Brother 2 Alive Brother 3 Alive Brother 4 Alive Father Mother Sister Alive Social History Tobacco Use Types Packs/Day Years Used Date Smoking Tobacco: Never Smokeless Tobacco: Never Tobacco Cessation:Counseling Given: Not Answered Alcohol Use Standard Drinks/Week Comments No 0 (1 standard drink = 0.6 oz pur e alcohol) Housing Instability Answer Date Recorde d Are you worried that in the next 2 months you may not have stable housing? No 07/31/2024 Food Access & Nutrition Answer Date Rec orded Do you have access to a vari ety of food including fruits and vegetables? Yes 07/31/2024 Access to Healthcare Answer Date Record ed Within the last 3 months, ho w many times did you visit the emergency department for your medical care? 0 07/31/2024 Health Literacy Answer Date Recorded How often do you need to hav e someone help you when you read instructions, pamphlets, or other written material from your doctor or pharmacy? Never 07/31/2024 Caregiver: How often do you need to have someone help you when you read instructions, pamphlets, or other written material from your doctor or pharmacy? Not on file 07/31/2024 Transportation Answer Date Recorded Has the lack of transportati on kept you from meetings, work, or from getting things needed for daily living? No Has the lack of transportati on kept you from medical appointments or from getting medications? No 07/31/2024 Social Isolation Answer Date Recorded How often do you feel lonely or isolated from th ose around you? Never 07/31/2024 Food Risk Answer Date Recorded Within the past 12 months we worried whether our food would run out before we got money to buy more. Never true 07/31/2024 Within the past 12 months th e food we bought just didn't last and we didn't have money to get more. Never true 07/31/2024 Dependent Care Answer Date Recorded Do you need help finding or paying for care for your loved ones. For example, child care giver or elderly care for an older adult? No 07/31/2024 Education Answer Date Recorded Do you think completing more education or training, like finishing a GED, going to college, or learning a trade, would be helpful for you? No 07/31/2024 Employment and Income Answer Date Recor ded During the last four weeks, have you been actively looking for work? No 07/31/2024 Living Situation Answer Date Recorded What is your living situation? 1 09/30/2023 Comments No Sex and Gender Information Value Date Recorded Sex Assigned at Not on file Legal Sex Female 2:04 AM EST Gender Identity Not on file Sexual Orientation Not on file Obstetrics History Last Filed Vital Signs Vital Sign Reading Time Taken Comments Blood Pressure 126/72 11/30/2024 1:08 PM EDT Pulse 70 11/30/2024 1:08 PM EDT Temperature 35.6 C (96 F) 11/30/2024 1:08 PM EDT Respiratory Rate 13 11/30/2024 1:08 PM EDT Oxygen Saturation 96% 09/17/2024 11:24 AM EST Inhaled Oxygen Concentration - - Weight 68 kg (150 lb) 11/30/2024 1:08 PM EDT Height 160 cm (5' 3 ) 11/30/2024 1:08 PM EDT Body Mass Index 26.57 11/30/2024 1:08 PM EDT Plan of Treatment Upcoming Encounters Date Type Department Care Team (Late st Contact Info) Description 08/03/2025 11:30 AM EST Office Visit Adult Medicine [address] [phone] Elida Garcia MD [address] [place] [phone] Health Maintenance Due Date Last Done Comments Breast Cancer Screening 1955 Zoster Vaccines (2 of 3) 06/15/2015 04/20/2015 COVID-19 Vaccine ( - season) 2024 05/27/2021, 05/06/2021 Depression Screening 09/09/2024 07/31/2024, 03/05/20 24 Falls Risk Assessment 07/31/2025 07/31/2024, 023 Medicare Annual Wellness Visit 07/31/2025 07/31/2024 Social Influencers of Health Screening 07/31/2025 07/31/2024 Hypertension/CHF/CAD Annual BMP Blood Test 08/03/2025 08/03/2024, 03/11/2024, 03/11/2024 RSV Immunization Adult Patients (1 - 1-dose 75+ series) 2028 Colorectal Cancer Screening: Colonoscopy 06/10/2029 06/10/2019 Cholesterol Screening (Lipid Panel) 11/30/2029 11/30/2024, 08/03/2024, 03/11/2024, Additional history exists Osteoporosis Screening (Bone Density Screening) 10/24/2032 10/24/2022, 05/05/2019 DTaP,Tdap,and Td Vaccines (3 - Td or Tdap) 01/03/2033 01/03/2023, 07/23/2011 Hepatitis C Screening Completed 02/10/2010 Pneumococcal Vaccine: 50+ Years Completed 01/03/2023, 01/20/2019, 05/10/2015 HIB Vaccines Aged Out No longer eligi ble based on patient's age to complete this topic HPV Vaccines Aged Out No longer eligi ble based on patient's age to complete this topic Hepatitis A Vaccines Aged Out No long er eligible based on patient's age to complete this topic Hepatitis B Vaccines Aged Out No long er eligible based on patient's age to complete this topic IPV Vaccines Aged Out No longer eligi ble based on patient's age to complete this topic Influenza Vaccine Discontinued MMR Vaccines Aged Out No longer eligi ble based on patient's age to complete this topic Meningococcal ACWY Vaccine Aged Out N o longer eligible based on patient's age to complete this topic Meningococcal B Vaccine Aged Out No l onger eligible based on patient's age to complete this topic RSV Immunization Patients Under 20 months Aged Out No longer eligible based on patient's age to complete this topic Varicella Vaccines Aged Out No longer eligible based on patient's age to complete this topic Procedures Procedure Name Priority Date/Time Associated Diagnosis Comments LIPID PANEL WITH REFLEX TO DIRECT LDL Routine 11/30/2024 1:33 PM EDT Mixed hyperlipidemia COMPREHENSIVE METABOLIC PANEL Routine 08/03/2024 11:53 AM EST Benign essential hypertension DEPRESSION SCREENING Routine 03/05/2024 FALLS RISK ASSESSMENT Routine 07/30/2023 DXA BONE DENSITY STUDY 1+ SITS AXIAL SKEL Routine 10/24/2022 2:35 PM EST Other specified disorders of bone density and structure, unspecified site COLONOSCOPY Routine 06/10/2019 HEPATITIS C SCREENING Routine 02/10/2010 from Last 3 Months or Most Recently Relevant to Health Maintenance Results * (ABNORMAL) Lipid panel with reflex to direct LDL (11/30/2024 1:33 PM EDT) Cholesterol 193 0 - 200 mg/dL LAB CHEMISTRY METHOD 11/30/2024 6:06 PM EDT [facility] Triglycerides 117 0 - 150 mg/dL LAB CHEMISTRY METHOD 11/30/2024 6:06 PM EDT [facility] HDL 56 >=40 mg/dL LAB CHEMISTRY METHOD 11/30/2024 6:06 PM EDT [facility] LDL Calculated 114(H) 0 - 100 mg/dL LAB CHEMISTRY METHOD 11/30/2024 6:06 PM EDT [facility] VLDL Cholesterol Rasheed 23.4 mg/dL LAB CHEMISTRY METHOD 11/30/2024 6:06 PM EDT [facility] Non HDL Chol. (LDL+VLDL) 137 <145 mg/dL LAB CHEMISTRY METHOD 11/30/2024 6:06 PM EDT [facility] Chol/HDL Ratio 3.4 0.0 - 4.4 LAB CHEMISTRY METHOD 11/30/2024 6:06 PM EDT [facility] Blood Venous blood specimen / Unknown Venipuncture / Unknown 11/30/2024 1:33 PM EDT 11/30/2024 1:33 PM EDT us Elida Garcia MD LAB BLOOD ORDERABL ES Final Result [facility] [address] [place] [address], [place] [phone] * Comprehensive metabolic panel (08/03/2024 11:53 AM EST) Sodium 142 133 - 145 mmol/L LAB CHEMISTRY METHOD 08/03/2024 4:51 PM [facility] Potassium 4.0 3.5 - 5.5 mmol/L LAB CHEMISTRY METHOD 08/03/2024 4:51 PM [facility] Chloride 109 96 - 110 mmol/L LAB CHEMISTRY METHOD 08/03/2024 4:51 PM [facility] CO2 28 21 - 32 mmol/L LAB CHEMISTRY METHOD 08/03/2024 4:51 PM [facility] Anion Gap 5 3 - 11 LAB CHEMISTRY METHOD 08/03/2024 4:51 PM [facility] Glucose 92 70 - 100 mg/dL LAB CHEMISTRY METHOD 08/03/2024 4:51 PM [facility] BUN 20 5 - 25 mg/dL LAB CHEMISTRY METHOD 08/03/2024 4:51 PM [facility] Creatinine 0.85 0.50 - 1.10 mg/dL LAB CHEMISTRY METHOD 08/03/2024 4:51 PM [facility] eGFR 74 >=60 mL/min/1. 73m2 LAB CHEMISTRY METHOD 08/03/2024 4:51 PM [facility] Comment:Calculation based on the Chronic Kidney Disease Epidemiology Collaboration (CKD-EPI) equation refit without adjustment for race. BUN/Creatinine Ratio 23.5 LAB CHEMISTRY METHOD 08/03/2024 4:51 PM [facility] Calcium 9.6 8.5 - 10.5 mg/dL LAB CHEMISTRY METHOD 08/03/2024 4:51 PM [facility] AST (SGOT) 17 10 - 42 unit/L LAB CHEMISTRY METHOD 08/03/2024 4:51 PM [facility] ALT (SGPT) 19 10 - 60 unit/L LAB CHEMISTRY METHOD 08/03/2024 4:51 PM EST [facility] Alkaline Phosphatase 65 42 - 121 unit/L LAB CHEMISTRY METHOD 08/03/2024 4:51 PM EST [facility] Total Protein 7.2 6.0 - 8.0 g/dL LAB CHEMISTRY METHOD 08/03/2024 4:51 PM [facility] Albumin 3.9 3.2 - 5.0 g/dL LAB CHEMISTRY METHOD 08/03/2024 4:51 PM [facility] Total Bilirubin 0.5 0.0 - 1.4 mg/dL LAB CHEMISTRY METHOD 08/03/2024 4:51 PM [facility] Blood Venous blood specimen / Unknown Venipuncture / Unknown 08/03/2024 11:53 AM EST 08/03/2024 11:53 AM EST Elida Garcia MD LAB BLOOD ORDERABL ES Final Result [facility] [address] [place] [address], * Depression Screening (03/05/2024) Depression Screening ABSTRACTED Historical Provider HEALTH MAINTENANCE Final Result * Falls Risk Assessment (07/30/2023) Pathologist [facility] Falls Risk Assessment ABSTRACTED Historical Provider HEALTH MAINTENANCE Final Result * DXA BONE DENSITY STUDY 1+ SITS AXIAL SKEL (10/24/2022 2:35 PM EST) Anatomical Region Laterality Modality Bone Densitometr y 07/24/2022 2:32 PM EST Narrative 10/24/2022 7:41 PM EST BONE DENSITY SCAN (DEXA): FINDINGS: Lumbar Spine T-score is -0.2. (SD relative to 20-29 y/o adult) Z-score is 1.9. (SD relative to age matched peers) This is considered normal by WHO criteria. Left Hip T-score is -2.0. Z-score is -0.4. This is considered osteopenia by WHO criteria. Comparison exam: 05/05/2019. 3.5% loss of lumbar spine bone mineral density and 5.6% loss of left hip bone mineral density, both statistically significant at the 95% confidence level. IMPRESSION: IMPRESSION: Osteopenia by WHO criteria. This patient has a 11% risk of major osteoporotic fracture and a 2.0% risk of hip fracture over the next 10 years. (World Health Organization Fracture Risk Assessment) [facility] Department of Internal Medicine recommends using National Osteoporosis Foundation (NOF) guidelines in treatment decisions related to osteoporosis. NOF guidelines suggest considering treatment for postmenopausal women and men aged 50 or older presenting with the following: History of hip or vertebral fracture. T-score = -2.5 (DXA) at the femoral neck, total hip, or spine, after appropriate evaluation to exclude secondary causes. Low bone mass (T-score between -1.0 and -2.5 at the femoral neck or spine) AND a 10-year probability of a hip fracture = 3% OR a 10-year probability of a major osteoporosis-related fracture = 20% based on the [place]-adapted WHO algorithm Please note that all treatment decisions require clinical judgment and consideration of individual patient factors, including patient preferences, co-morbidities, previous drug use, risk factors not captured in the FRAX model (e.g., frailty, falls, vitamin D deficiency, increased bone turnover, interval significant decline in bone density) and possible under- or over-estimation of fracture risk by FRAX. Optional alternative screening schedule based on rica Tafoya., [facility] September 27, 2011 for patients with osteopenia (based on hip BMD T-score) is as follows: * advanced osteopenia (T scores -2.00 to -2.49), BMD testing every year * moderate osteopenia (T scores -1.50 to -1.99), BMD testing every 5 years mild osteopenia or normal BMD (T scores -1.50 and higher), BMD testing every 15 years Procedure Note Urszula De La Paz MD - 10/15/2023 BONE DENSITY SCAN (DEXA): FINDINGS: Lumbar Spine T-score is -0.2. (SD relative to 20-29 y/o adult) Z-score is 1.9. (SD relative to age matched peers) This is considered normal by WHO criteria. Left Hip T-score is -2.0. Z-score is -0.4. This is considered osteopenia by WHO criteria. Comparison exam: 05/05/2019. 3.5% loss of lumbar spine bone mineraldensity and 5.6% loss of left hip bone mineral density, both statistically significant at the 95%confidence level. IMPRESSION: IMPRESSION: Osteopenia by WHO criteria. This patient has a 11% risk of majorosteoporotic fracture and a 2.0% risk of hip fracture over the next 10 years. (World HealthOrganization Fracture Risk Assessment) [facility] Department of Internal Medicine recommendsusing National Osteoporosis Foundation (NOF) guidelines in treatment decisions related toosteoporosis. NOF guidelines suggest considering treatment for postmenopausal women and menaged 50 or older presenting with the following: History of hip or vertebral fracture. T-score = -2.5 (DXA) at the femoral neck, total hip, or spine, afterappropriate evaluation to exclude secondary causes. Low bone mass (T-score between -1.0 and -2.5 at the femoral neck or spine)AND a 10-year probability of a hip fracture = 3% OR a 10-year probability of a majorosteoporosis-related fracture = 20% based on the [place]-adapted WHO algorithm Please note that all treatment decisions require clinical judgment andconsideration of individual patient factors, including patient preferences, co- morbidities,previous drug use, risk factors not captured in the FRAX model (e.g., frailty, falls, vitaminD deficiency, increased bone turnover, interval significant decline in bone density) andpossible under- or over-estimation of fracture risk by FRAX. Optional alternative screening schedule based on vernon Tafoya al., NEJMJanuary 2011 for patients with osteopenia (based on hip BMD T-score) is as follows: * advanced osteopenia (T scores -2.00 to -2.49), BMD testing every year * moderate osteopenia (T scores -1.50 to -1.99), BMD testing every 5years mild osteopenia or normal BMD (T scores -1.50 and higher), BMD testingevery 15 years Abby DAVISON IMG DXA PROCEDURES Final Result * Colonoscopy (06/10/2019) Colonoscopy no interpretation , abstracted Anatomical Region Laterality Modality Other Historical Provider HEALTH MAINTENANCE Final Result * Hepatitis C Screening (02/10/2010) Hepatitis C Screening ABSTRACTED Historical Provider HEALTH MAINTENANCE Final Result from Last 3 Months or Most Recently Relevant to Health Maintenance Insurance [employer] Member Subscriber Plan / Payer (Ef fective 2019-Present) Name:Kathy Steve Relation to Subscriber:Self Name:Kathy Steve Payer ID:[id number] Group ID:[id number] Type:Not on file Address: [place] [address] [address] [phone] Care Teams Edge Grinder Machine Relationship Specialty Start Date End Date Elida Garcia MD [address] [place] [id number] PCP - General Internal Medicine 09/15/24
--- OUTSIDE RECORDS SUMMARY | 2025-04-20 13:46 | XMS_ITS | Clinical Summary ---
Author Organization [facility] Address [address] [place] [address] Care Team Providers Care Forger Helper Name Role Phone Jeremy Nj NP Primary Care Provider [phone] Source Comments PLEASE NOTE, if this patient is a minor, it may be UNLAWFUL to discuss sensitive information that is contained in these records (such as FAMILY PLANNING, MENTAL HEALTH or SUBSTANCE ABUSE) with the minor patient's parent or other person without the patient's specific authorization.[facility] Allergies Active Allergy Reactions Criticality Noted Date Comments Aspirin Swelling Medium 10/26/2016 Codeine Swelling Medium 10/26/2016 Medications hydroCHLOROthiazi de (HYDRODIURIL) 25 mg tabletIndications :Essential hypertension Take 25 mg by mouth once daily 7 Active mirtazapine (REMERON) 15 mg tabletIndications :Insomnia, unspecified type Take 1 Tab by mouth nightly at bedtime 30 Tab 5 7 Active loratadine (CLARITIN) 10 mg tabletIndications :Allergy, initial encounter Take 1 Tab by mouth once daily as needed for allergies 30 Tab 5 7 Active clonazePAM (KLONOPIN) 0.5 mg tablet Take 0.5 mg by mouth once daily 0 6 Active fluticasone (FLONASE) 50 mcg/actuation nasal spray Place 2 Sprays in both nostrils once daily 3 6 Active Active Problems Problem Noted Date Diagnosed Date Essential hypertension 10/30/2016 Insomnia 10/26/2016 Allergy 10/26/2016 Social History Tobacco Use Types Packs/Day Years Used Date Smoking Tobacco: Never Alcohol Use Standard Drinks/Week Comments No 0 (1 standard drink = 0.6 oz pur e alcohol) Social Connections Answer Date Recorded Social Connections and Isolation 0 05/02/2019 Financial Resource Strain Answer Date R ecorded Financial Resource Strain 0 2018 Stress Answer Date Recorded Stress 0 05/02/2019 Physical Activity Answer Date Recorded Physical Activity 0 05/02/2019 Food Insecurity Answer Date Recorded Food 0 05/02/2019 Transportation Needs Answer Date Record ed Transportation 0 05/02/2019 Housing Stability Answer Date Recorded Housing 0 05/02/2019 Safety and Environment Answer Date Tanner rded Safety 0 05/02/2019 Utilities Answer Date Recorded Utilities 0 05/02/2019 Employment Answer Date Recorded Employment 0 05/02/2019 Comments No Sex and Gender Information Value Date Recorded Sex Assigned at Not on file Legal Sex Female 11:36 AM PDT Gender Identity Not on file Sexual Orientation Not on file Last Filed Vital Signs Vital Sign Reading Time Taken Comments Blood Pressure 126/60 11/14/2016 3:24 PM EST Pulse 88 11/14/2016 3:24 PM EST Temperature 36.9 C (98.4 F) 11/14/2016 3:24 PM EST Respiratory Rate 16 11/14/2016 3:24 PM EST Oxygen Saturation - - Inhaled Oxygen Concentration - - Weight 64.9 kg (143 lb) 10/26/2016 3:18 PM EST Height 160 cm (5' 3 ) 10/26/2016 3:18 PM EST Body Mass Index 25.33 10/26/2016 3:18 PM EST Plan of Treatment Not on file Insurance [employer] Member Subscriber Plan / Payer (Ef fective 2016-Present) Name:Kathy Dugan Relation to Subscriber:Self Name:KATHY DUGAN Payer ID:[id number] Group ID:Not on file Type:Medicaid Address: [facility] [address] [place] [address] Care Teams Forger Helper Relationship Specialty Start Date End Date Jeremy Nj NP [address] [place] [address] PCP - General 07/17/18
== END 2025-04-20 13:00 | disposition home or self-care (01) ==
LOC: HO.MAMMO 12:59
PROVIDERS: PCP Internal Medicine; Visit Provider Obstetrics & Gynecology
DX: Z12.31 Encounter for screening mammogram for malignant neoplasm of breast (principal)
CPT/HCPCS: 77063; 77067

== ENCOUNTER → 2025-04-20 13:15 | Outpatient (BNV) | payer OTHER, SELFPAY | PROVIDERS: PCP Internal Medicine; Visit Provider Radiology Body Imaging | DX: Z12.31 Encounter for screening mammogram for malignant neoplasm of breast (principal) | CPT/HCPCS: 77063; 77067 ==

== ENCOUNTER 2025-08-25 19:16 | Emergency (ER) | payer OTHER, SELFPAY ==
--- NOTE | 2025-08-25 | ECG_ITS ---
Test Reason : SYNCOPE Blood Pressure : */* mmHG Vent. Rate : 74 BPM Atrial Rate : 74 BPM P-R Int : 176 ms QRS Dur : 114 ms QT Int : 432 ms P-R-T Axes : 62 34 14 degrees QTcB Int : 479 ms Sinus rhythm with Fusion complexes Anteroseptal infarct (cited on or before 01-Feb-2007) Abnormal ECG When compared with ECG of 05-Sep-2024 13:05, Fusion complexes are now Present Premature ventricular complexes are no longer Present Referred By: Generic ED Physician Electronically Signed By: Ollie Martínez
[2025-08-25 19:22] VITALS: BP 138/64; BP 142/90; PULSE 73; PULSE 81; RESP 16; TEMP 36.6; O2SAT 94; O2SAT 99; BMI 29.4
[2025-08-25 19:37] LABS: MANUAL DIFF FLAG NO
[2025-08-25 19:48] LABS: Hematocrit 39.7 % (37.0-47.0); Hemoglobin 12.6 g/dl (12.0-16.0); Imm Gran Abs Auto 0.02 X10*3/uL (0.00-0.03); Imm Gran Pct Auto 0.2 % (0.0-0.4); Lymphocytes Absolute Auto 1.6 X10*3/uL (1.2-4.9); Mean Corpuscular HGB Conc 31.7 g/dl (31.0-35.0); Mean Corpuscular Hemoglobin 26.9 pg (27.0-33.0); Mean Corpuscular Volume 84.8 fL (80.0-98.0); NRBC Abs Auto 0.000 X10*3/uL (0.0-0.012); NRBC Pct Auto 0.0 /100WBC (0.0-0.2); Platelet Count 202 X10*3/uL (160-400); Red Blood Count 4.68 X10*6/uL (4.20-5.50); White Blood Count 8.3 X10*3/uL (4.8-10.8)
--- NOTE | 2025-08-25 19:52 | ED_ITS ---
HPI - Syncope General Chief Complaint: Syncope Stated Complaint: Syncopal episode w/ fall @1500 Time Seen by Provider: 08/25/25 19:40 History of Present Illness ED Provider: Navarro Casper MD HPI narrative: Patient is a 69-year-old female with a history of vertigo she is otherwise healthy today she said she had a fall when walking to the microwave with a cup tea she struck her left side of her lateral neck on the freezer she felt profoundly vertiginous as if the room was spinning while she was on the floor after this. She did not have chest pain headache and was able to get up after this. No vomiting no tinnitus hearing loss she recalls similar episodes few years ago. Related Data Home Medications ?Medication ?Instructions ?Recorded ?Confirmed clonazepam 1 mg tablet 1 mg PO BID PRN 12/25/22 fluticasone propionate 50 2 spray intranasal DAILY mcg/actuation nasal spray,suspension latanoprost 0.005 % eye drops 1 drp ophthalmic (eye) B EDTIME 12/25/22 levothyroxine 25 mcg tablet 25 mcg PO DAILY 12/25/22 levothyroxine 50 mcg tablet 50 mcg PO DAILY 12/25/22 lisinopril 5 mg tablet 5 mg PO DAILY 12/25/22 loratadine 10 mg tablet 10 mg PO DAILY PRN allergies 12/25/22 mirtazapine 7.5 mg tablet 7.5 mg PO BEDTIME 12/25/22 Previous Rx's ?Medication ?Instructions ?Recorded azithromycin 250 mg tablet See Rx Instructions PO .COM PLEX #6 10/15/22 (Zithromax) tabs cefuroxime axetil 500 mg tablet 500 mg PO Q12H 7 days #14 tabs 12/25/22 erythromycin 5 mg/gram (0.5 %) eye 1 appl ophthalmic-R ight Q4H 7 days 12/25/22 ointment #3.5 grams meclizine 25 mg tablet 25 mg PO BID PRN dizziness # 10 tabs 08/25/25 Allergies Allergy/AdvReac Type Severity Reaction Status Date / Time aspirin Allergy Mild SWELLING Verified 08/25/25 19:27 codeine Allergy Mild SWELLING Verified 08/25/25 19:27 [facility] Past Medical History Medical History Hypothyroidism HTN (hypertension) Social History Social History Patient Tobacco Use Status: Never used Tobacco Advance Directives: Yes Advance Directives Information Provided: Yes Advance Directives on File: No Physical Exam 2 Exam: Exam: GENERAL: Well appearing. No apparent distress. Alert. HEAD/NECK: Normal to inspection. Neck supple. No cervical lymphadenopathy. EYES: Normal to inspection. Sclera non-icteric. ENMT: External nose normal. RESPIRATORY: Respiratory effort normal. Lungs clear to auscultation bilaterally. CARDIOVASCULAR: Regular rate. Normal rhythm. No murmur. No rubs. GI: Soft, non-tender, non-distended. No rebound or guarding. No masses palpable. No hepatosplenomegaly. SKIN: No jaundice. NEUROLOGICAL: Alert. PSYCHIATRIC: Alert. Appearance appropriate for situation. Attitude cooperative. OTHER: Comprehensive Neuro exam: Face symmetric, tongue midline, strong symmetric eye closure, pupils symmetric and reactive to light, intact sensation to the face throughout, intact strong face deviation and shoulder shrug. No nystagmus. Normal finger-nose test. Normal steady gait no ataxia Sensation intact to light touch throughout * 5 out of 5 strength in bilateral upper extremities, 5 and 5 strength in lower extremities Vital Signs: Vital Signs: Last Vital Signs Temp 97.9 F 08/25/25 20:48 Pulse 77 08/25/25 20:48 Resp 16 08/25/25 20:48 BP 140/61 H 08/25/25 20:48 Pulse Ox 97 08/25/25 20:48 O2 Del Method Room Air 08/25/25 19:22 BMI result Body Mass Index 29.4 Medical Decision Making Medical Decision Making MDM Narrative: Medical Decision Makin-year-old female with syncopal event with subsequent vertiginous sensation that completely resolved. Sounds like it was quite significant but transient and she has had history of vertigo the symptomatology rapid onset and transient nature more suggestive of a peripheral vertigo. Ears are clear she has got a normal reassuring cerebellar testing and neurologic exam here. No indication for head CT. Neck is without tenderness supple there was no bruising Preliminary Favored Differential Diagnosis: Peripheral vertigo favored over central vertigo, lightheadedness, vasovagal, orthostasis among additional considered etiologies Testing Interpreted Independently: Sinus rhythm, left bundle-branch block unchanged from previous comparison August 2024 no ischemic changes Radiology or Lab testing Results Reviewed: ?See below for details Consults: ?See below for details Independent Historians/External Chart Reviews: ?See below for details Social Determinants of Health Impacting MDM/Planning: ?See below for details Lab Data 08/25/25 19:34 08/25/25 19:34 Labs: Lab Results 08/25/25 Range/Units 19:34 WBC 8.3 (4.8-10.8) X10*3/uL RBC 4.68 (4.20-5.50) X10*6/uL Hgb 12.6 (12.0-16.0) g/dl Hct 39.7 (37.0-47.0) % MCV 84.8 (80.0-98.0) fL MCH 26.9 L (27.0-33.0) pg MCHC 31.7 (31.0-35.0) g/dl RDW 13.9 (11.0-16.0) % Plt Count 202 (160-400) X10*3/uL MPV 10.5 (9.4-12.3) fL Immature Gran % (Auto) 0.2 (0.0-0.4) % Neut % (Auto) 76.5 H (45-73) % Lymph % (Auto) 19.2 L (20-40) % Erath % (Auto) 3.8 (2-11) % Eos % (Auto) 0.2 (0-4) % Baso % (Auto) 0.1 (0-2) % Lymph # (Auto) 1.6 (1.2-4.9) X10*3/uL Erath # (Auto) 0.3 (0.1-1.2) X10*3/uL Eos # (Auto) 0.0 (0.0-0.4) X10*3/uL Baso # (Auto) 0.0 (0.0-0.2) X10*3/uL Abs Immat Gran (auto) 0.02 (0.00-0.03) X10*3/uL Absolute Neuts (auto) 6.4 (2.0-8.3) x10*3/uL Absolute Nucleated RBC 0.000 (0.0-0.012) X10*3/uL Nucleated RBC % (auto) 0.0 (0.0-0.2) /100WBC Sodium 142 (135-145) mmol/L Potassium 3.9 (3.3-5.1) mmol/L Chloride 107 (96-108) mmol/L Carbon Dioxide 27 (22-29) mmol/L Anion Gap 12 (12-20) BUN 16 (9-16) mg/dL Creatinine 0.65 (0.5-1.4) mg/dL Estim Creat Clear Calc 77.1 Estimated GFR > 60 Random Glucose 120 H (60-115) mg/dL Calcium 9.3 (8.4-10.2) mg/dL Magnesium 2.2 (1.6-2.6) mg/dL Total Bilirubin 0.3 (0.0-1.0) mg/dL AST 21 (5-31) U/L ALT 15 (0-31) U/L Alkaline Phosphatase 84 (39-117) U/L Troponin I High Sens < 2.7 (<3.5-17.0) ng/L Total Protein 7.5 (6.5-8.0) g/dL Albumin 4.4 (3.5-5.0) g/dL Discharge Plan Discharge Clinical Impression: Episodic peripheral vertigo Patient Disposition: Home, Self-Care Instructions: Vertigo (ED) Additional Instructions: Today in the emergency department you were evaluated for a episode of falling felt to be attributable to vertigo found this in the past we will prescribe meclizine which you can take if you develop vertiginous symptoms again we strongly recommend drinking large glass water take meclizine and lay down in a dark room for at least 45 minutes get up slowly after this to test if you are still feeling dizzy. Call your primary doctor for follow up Prescriptions: New meclizine 25 mg tablet 25 mg PO BID PRN (Reason: dizziness) Qty: 10 0RF No Action azithromycin [Zithromax] 250 mg tablet See Rx Instructions PO .COMPLEX Qty: 6 0RF Rx Instructions: take 500 mg today (day 1), then 250 mg for 4 days (days 2-5) PO clonazepam 1 mg tablet 1 mg PO BID PRN fluticasone propionate 50 mcg/actuation spray,suspension 2 spray intranasal DAILY latanoprost 0.005 % drops 1 drp ophthalmic (eye) BEDTIME loratadine 10 mg tablet 10 mg PO DAILY PRN (Reason: allergies) lisinopril 5 mg tablet 5 mg PO DAILY levothyroxine 50 mcg tablet 50 mcg PO DAILY mirtazapine 7.5 mg tablet 7.5 mg PO BEDTIME levothyroxine 25 mcg tablet 25 mcg PO DAILY erythromycin 5 mg/gram (0.5 %) ointment 1 appl ophthalmic-Right Q4H 7 Days Qty: 3.5 1RF Rx Instructions: Apply to right eye every 4 hours while awake. cefuroxime axetil 500 mg tablet 500 mg PO Q12H 7 Days Qty: 14 0RF Interventions: ED Discharge Assessment Last Done: 08/25/25 20:48 Discharge Date/Time: 08/25/25 20:51 Print Language: Bulgarian
[2025-08-25 19:54] LABS: Alanine Aminotransferase 15 U/L (0-31); Albumin Level 4.4 g/dL (3.5-5.0); Alkaline Phosphatase 84 U/L (39-117); Anion Gap 12 (12-20); Aspartate Amino Transferase 21 U/L (5-31); Blood Urea Nitrogen 16 mg/dL (9-16); Calcium 9.3 mg/dL (8.4-10.2); Carbon Dioxide 27 mmol/L (22-29); Chloride 107 mmol/L (96-108); Creatinine Clr Calc Pharmacy 77.1; Estimated Glomerular Filt Rate > 60; Magnesium 2.2 mg/dL (1.6-2.6); Potassium 3.9 mmol/L (3.3-5.1); Sodium 142 mmol/L (135-145); Total Protein 7.5 g/dL (6.5-8.0)
[2025-08-25 20:04] LABS: Troponin-I High Sensitivity < 2.7 ng/L (<3.5-17.0)
[2025-08-25 20:42] VITALS: BP 140/61; PULSE 77; RESP 16
[2025-08-25 20:48] VITALS: BP 140/61; PULSE 77; RESP 16; TEMP 36.6; O2SAT 97
--- OUTSIDE RECORDS SUMMARY | 2025-08-25 21:14 | XMS_ITS | Continuity of Care Document ---
Author Organization [facility], [facility] Address [address] [place] [address] Care Team Providers Care Arrt Technologist Name Role Phone HIM CCA OTHER Assessment Encounter Date Assessment Date Assessment LastModified by Organization Details LastModified Time 08/25/2025 08/25/2025 Ms. Steve is a 69 yo F with Hypertension, Chronic Pain, Hyperlipidemia, Anxiety Disorder who is calling today about dizziness and a fall. Per patient and medic, patient was in her kitchen, fell and hit the L side of her neck on a freezer/chest. States that she was standing and then started to feel dizzy and then fell. No headache. No neck pain. ROM intact. Pre-existing L shoulder pain. Was initially dizzy after the incident. Had an episode of n/v. now resolved. No neck pain or headache at this time. Not currently dizzy. Not on AC. MDM: Given the patient's mechanism of injury, I am worried that her fall may have been provoked by a syncopal episode. Patient was describing dizziness prior to her fall. With a head strike, and then subsequent nausea and vomiting, I am worried about possible concussive pathology versus ICH. Mentating appropriately though now. No motor deficits or other neuro deficits. However, with the symptoms and the dizziness that proceeded the fall, I do think that she needs further cardiac testing and monitoring. I do also think that given her age and risk factors, she warrants CT head and neck imaging. Concerned about concussive pathology as well. Will recommend transferred to the ER. Patient to be transferred to [facility]. Signed out to Rl RAJAN at 6:49 PM. I provided real -time medical direction via phone for this encounter, and was available for additional phone based assistance as needed. I have reviewed and agree with the Assessment and Plan as documented by the Deck Engine Operator. We discussed the diagnostic uncertainty of home visits and the risk associated with this. In this case the patient and I felt transfer to the ER was safest for disposition and continued care as their needs exceeded what could safely be supported in the home setting. [email or web address] Not available 08/25/2025 18:50:29 Plan of Treatment Reminders Order Date Submit Date Provider Last Modified By Organization Details Last Modified Time Details Appointments Urgent Care 2024 03:33P M Not available Not available Not available Lab None recorded . Referral None recorded . Procedures None recorded . Surgeries None recorded . Imaging None recorded . Medication Orders None recorded . Patient TargetsNo targets recorded. Patient InstructionsNo instructions recorded. Reason for Referral None Reported. Medical Equipment None Reported. Allergies Allergen ID Allergen Name Allergen Category Reaction Reaction Severity Criticality Documentation Date Start Date Code Code System Note Provider Name and Address Organization Details Recorded Time 05206 aspirin medicatio n Not available Not available Not available 09/03/2024 1191 RxNorm Not Available [facility] - production 17:47:24 82520 codeine medicatio n Not available Not available Not available 09/03/2024 2670 RxNorm Not Available [facility] - production 17:47:24 69011 amlodipin e medicatio n Not available Not available Not available 08/25/20252017 60002 RxNorm Itchy , swoll en eyes Not Available [employer] - prod 19:01:55 21899 aluminum aspirin Not available Not available Not available Not available 08/25/20252005 611 RxNorm Not Available [employer] - prod 19:01:55 52341 naproxen medicatio n swelling moderate Not available 08/25/20252013 7258 RxNorm Facia l swell ing, JEFERSON ATES NABUM ETONE Not Available [employer] - prod 19:01:55 67633 atorvasta tin medicatio n Not available Not available Not available 08/25/20252024 80437 RxNorm Not Available [employer] - prod 19:02:47 19383 clopidogr el medicatio n Not available Not available Not available 08/25/20252024 21868 RxNorm Fatig ue, weak, no stren gth Not Available jocelyn - External [employer] - prod 19:02:47 69907 simvastat in medicatio n Not available Not available Not available 08/25/20252011 55301 RxNorm Eyeli d swell ing Not Available jocelyn - External [employer] - prod 19:02:47 Medications Name Sig Start Date Stop Date Status Note LastModified by Organization Details LastModified Time latanoprost 0.005 % eye drops INSTILL ONE DROP IN LEFT EYE EVERY NIGHT. active Not Available Not Available No t Available atorvastatin 20 mg tablet TAKE 1 TABLET BY MOUTH EVERY DAY active Not Available Not Available No t Available clonazepam 1 mg tablet TAKE 1 TABLET BY MOUTH TWICE A DAY NEEDED active Not Available Not Available No t Available clopidogrel 75 mg tablet TAKE 1 TABLET BY MOUTH EVERY DAY active Not Available Not Available No t Available pravastatin 10 mg tablet TAKE 1 TABLET BY MOUTH 1 TIME EACH DAY. active Not Available Not Available No t Available meclizine 25 mg tablet TAKE 1 TABLET BY MOUTH THREE TIMES A DAY FOR 7 DAYS active Not Available Not Available No t Available levothyroxine 50 mcg tablet TAKE 1 TABLET BY MOUTH EVERY DAY active Not Available Not Available No t Available lisinopril 5 mg tablet TAKE 1 TABLET BY MOUTH EVERY DAY active Not Available Not Available No t Available metoprolol succinate ER 25 mg tablet,extende d release 24 hr TAKE 1 TABLET BY MOUTH EVERY DAY active Not Available Not Available No t Available fluticasone propionate 50 mcg/actuation nasal spray,suspensi on TAKE 1 SPRAY NASALLY 2 TIMES PER DAY FOR 30 DAYS active Not Available Not Available No t Available loratadine 10 mg tablet TAKE 1 TABLET BY MOUTH DAILY NEEDED FOR ALLERGIES . active Not Available Not Available No t Available ezetimibe 10 mg tablet TAKE 1 TABLET BY MOUTH EVERY DAY active Not Available Not Available No t Available mirtazapine 7.5 mg tablet TAKE 1 TABLET BY MOUTH EVERYDAY AT BEDTIME active Not Available Not Available No t Available Vitals Date Recorded Oxygen saturation Body height Respiratory rate Heart rate Body weight Body temperature Systolic And Diastolic Provider Name and Address Organization Details Last Updated DateTime 5 96 % 160.02 cm 16 /min 91 /min 20369.2 08 g 98.4 [degF] 121/74 mm[Hg] Not Available [facility] - production 18:33:28 Social History None recorded. Functional Status None recorded. Mental Status None recorded. Family History Nothing Reported. Medical History No medical history recorded. Gynecological HistoryNo gynecological history recorded. Obstetrics History GPAL:G 0 P 0 0 0 0 Past Encounters Encounter ID Performer Location Encounter Start Date Encounter Closed Date Diagnosis/Indication Diagnosis SNOMED-CT Code Diagnosis ICD10 Code Diagnosis IMO Codes Diagnosis Note [id number] KIMBER RAHMAN MD [facility] [address] [place] [address] 08/25/2025 18:33:26 08/25/2025 19:18:29 Syncope and collapse [id number] 43697 Health Concerns Section Related Observation LastModified by Organization Detai ls LastModified Time None Recorded Concern Status LastModified by Organization Details LastModified Time None Recorded Payers Encounter Date Sequence Insurance Name Policy Number Policy Lopez Covered Member ID Lopez Member ID Guarantor Name 08/25/2025 1 [facility] - DOS ON OR AFTER 2022 - DUAL ELIGIBLE - HALFWAY OPTIONS AND ONE C[employer] (MEDICARE REPLACEMENT/ADV ANTAGE - HMO) Kathy Steve [id number] Kathy Steve Notes Date Note Type Note Provider Name and Address Organization Details Recorded Time 08/25/2025 text/html ROS as noted in the HPI HPI: Kathy called into [facility] who obtained parts interpreter ID# [id number] and stated member had a fall and the line was transferred to [facility]. Kathy states she was sipping on tea and walked to kitchen and c/o dizziness and fell and hit her left side of neck and hand on the refrigerator. She states she is now resting on couch. When asked if she is experiencing any pain, she states she has a headache. She states she has existing left shoulder pain for about three months. She denies any bleeding. She denies taking any blood thinners. Flakeboard Line Tender advised Kathy to go to Urgent care or ER to be evaluated, she refused Urgent care or ER for diagnostics at this time. I do not think I need X-rays at this time . She is asking for someone to come just check her out. She states she is using her hand fine . Flakeboard Line Tender educated member on staying hydrated and when changing positions to rise very slow, Kathy verbalized understanding. Flakeboard Line Tender informed her that an [facility] visit will be requested. .................. .................. .................. .................. .................. .................. .................. ............... [facility] Nurse Triage Notes (Vandana Teixeira): Chief Complaints: Dizziness, Falls, Headache PMH: Hypertension, Chronic Pain, Hyperlipidemia, Anxiety Disorder PMH Reviewed at 08/25/2025 - 15:51 (ET) Allergies Reviewed at 08/25/2025 - 15:51 (ET) Comments: HPI reviewed .................. .................. .................. .................. .................. .................. .................. ............... Deck Engine Operator Note From Steffen Goddard: [facility] makes pt contact a 69 yo F CC of dizziness causing a fall. [facility] obtains vital signs. PT explains she got a drink from her fridge then after taking a sip began feeling dizziness and fell to the floor, catching herself on a kitchen chair as she fell. PT struck her neck on the edge of a floor freezer and injured her left wrist as well. Neck is non tender, no pain, full rom. Left wrist is tender, painful, pulse present distally, full rom w/ pain. PT has preexisting left shoulder pain. Family hx of cardiac issues. PT afterwards had to lay on the floor due to overwhelming dizziness. PT then laid on her couch had abdominal pain and self induced vomiting which she explains then she felt better. No blood thinners. Pupils equal and reactive. Stroke scale negative. Vitals WNL. [facility] contacts [facility] and explains above mentioned. [facility] recommends a full evaluation at the hospital due to the cc and events that transpired. [facility] contacts 911 who sends [facility]. [facility] is given pt hand off report and assumes care of pt. PT is to be transported to [facility]. [facility] clear. .................. .................. .................. .................. .................. .................. .................. ............... [facility] Consulted: Kimber Rahman .................. .................. .................. .................. .................. .................. .................. ............... Disposition: Ca RAHMAN MD [address] [facility],[address], [place], [address], BrandBacker 08/25/2025 19:18:28 OBGyn Episode No OBEpisode recorded.
--- OUTSIDE RECORDS SUMMARY | 2025-08-25 21:14 | XMS_ITS | Continuity of Care Document ---
Author Name [facility] Medical Address [address] [place] [id number] Organization Unknown Address [address] [place] [address] Medications No known medications Problems No known problems
--- OUTSIDE RECORDS SUMMARY | 2025-08-25 21:14 | XMS_ITS | Encounter Summary ---
Author Organization [facility] Address [address] [place] [address] Encounters * CPT with Medical [facility] at [facility] on 2025-08-26 Kathy called into [place] who obtained retail seasonal specialist ID# [id number] and stated member had a fall and [...] bleeding. She denies taking any blood thinners. Car Hostler advised Kathy to go to Urgent care or ER to be evaluated, she refused Urgent care or ER for diagnostics at this time. I do not think I need X-rays at this time . She is asking for someone to come just check her out. She states she is using her h and fine . Car Hostler educated member on staying hydrated and when changing positions to rise veryslow, Kathy verbalized understanding. Car Hostler informed her that an [facility] visit will be requested. { reasonForRequest : , patientReports : , denies&quot ;:[], chiefComplaints : Dizziness, Falls, Headache , pmh : Hypertension, Chronic Pain, Hyperlipidemia, Anxiety Disorder , allergies : Aspirin, Co deine , otherAllergies :null, painAssessment : , visitOutco me : , additionalComments : HPI reviewed } [facility] makes pt contact a 69 yo F CC of dizziness causing a fall. [facility] obtains vital signs. PT explains she got [...] had to lay on the floor due tooverwhelming dizziness. PT then laid on her couch had abdominal pain and self induced vomiting which she explains then she felt better. No blood thinners. Pupils equal and reactive. Stroke scale negative. Vitals WNL. [facility] contacts [facility] and explains above mentioned. [facility] recommends a full evaluation att hospital due to the cc and events that transpired. [facility] contacts 911 who sends [facility]. [facility] is given pt hand off report and assumes care of pt. PT is to be transported to [facility]. [facility] clear. IV_(FLUIDS_AND/OR_MEDICATION), MEDICATION_IM, EKG, POC_BLOODWORK, POC_FLU_STREP, GLUCOSE, COVID_TEST, ORTHOSTATIC_VITAL_SIGNS, PO_MEDICATION Written by Medical [facility] on 2025-08-26
--- OUTSIDE RECORDS SUMMARY | 2025-08-25 21:14 | XMS_ITS | Data Portability ---
Author Organization [employer] [facility], [facility] Address [address] [place] [address] Care Team Providers Care Superintendent [employer] Name Role Phone HIM CCA OTHER Assessment Encounter Date Assessment Date Assessment LastModified by Organization Details LastModified Time 09/04/2024 09/04/2024 I provided real -time medical direction via phone for this encounter and was available for additional phone-based assistance as needed. I have reviewed and agree with the Assessment and Plan as documented by the Chemical Processing Technician. Patient given the opportunity to ask questions. Our service contacted for an assessment of: chest pain As per above, patient with chronic chest pain. Denies nausea vomiting. Denies dyspnea on exertion. Denies shortness of breath. No radiation of the pain. Is not reproducible. Is not worse when she takes deep breath. Describes it as a burning sensation and wonders if it is GERD. States that she has it mostly at night when getting ready to go to bed. Does admit to some component of anxiety related to the pain she is having. Is not associated with any activity. Per office machine service supervisor on the scene she is nontoxic and she is afebrile and stable. Her vital signs are stable. Her ECG is noted to be totally normal. We discussed the diagnostic uncertainty of home visits and the risk associated with this. In this case, the patient and I felt this to be an acceptable and reasonable amount of risk given the benefit of avoiding an ED visit. We discussed the need to seek care urgently/emergen tly in the setting of any new or worsening serious symptoms. She is likely to have noncardiac associated chest pain. I would like to her to follow up with her PCP. She will continue with the atorvastatin for hyperlipidemia. She is not have any specific cardiac meds prescribed. Her symptoms are not suggestive of angina at this point in time and I held off on prescribing nitroglycerin for her. She is asymptomatic at the current time. [email or web address] Not available 09/04/2024 21:39:29 08/25/2025 08/25/2025 Ms. Steve is a 69 [...] the ER. Patient to be transferred to [facility]. Signed out to Rl RAJAN at 6:49 PM. I provided real -time medical direction via phone for this encounter, and was available for additional phone based assistance as needed. I have reviewed and agree with the Assessment and Plan as documented by the Chemical Processing Technician. We discussed the diagnostic uncertainty of home [...] available Not available Not available Lab None recorded. Referral None recorded. Procedures None recorded. Surgeries None recorded. Imaging electroca rdiogram 2023 024 JOC[facility]N [facility], [address] [place] [address], [phone] 03/07/2025 05:01:36 Medication Orders None recorded. Patient TargetsNo targets recorded. Patient InstructionsNo instructions recorded. Reason for Referral None Reported. Results Created Date Observation Date Name Description Value Unit Range Abnormal Flag Note LastModifiedBy Organization Detail LastModifiedTime 09/04/20 24 09/04/2024 janny medelgr am No observ ation record ed. acalthobrigidashivani [address], [phone] 09/04/2024 21:39:00 Result Notes None recorded. Medical Equipment None Reported. Allergies Allergen ID Allergen Name Allergen Category Reaction Reaction Severity Criticality Documentation Date Start Date Code Code System Note Provider Name and Address Organization Details Recorded Time 35443 aspirin medicatio n Not available Not available Not available 09/03/2024 1191 RxNorm Not Available [facility] 17:47:24 23232 codeine medicatio n Not available Not available Not available 09/03/2024 2670 Rx[facility] Available [facility] 17:47:24 61901 amlodipin e medicatio n Not available Not available Not available 08/25/20252017 94758 RxNorm Itchy , swoll en eyes Not Available [employer] - prod 19:01:55 15506 aluminum aspirin Not available Not available Not available Not available 08/25/20252005 611 RxNorm Not Available [employer] - prod 5 19:01:55 93363 naproxen medicatio n swelling moderate Not available 08/25/20252013 7258 RxNorm Facia l swell ing, JEFERSON ATES NABUM ETONE Not Available [employer] External Data Service - prod 19:01:55 42523 atorvasta tin medicatio n Not available Not available Not available 08/25/20252024 20754 RxNorm Not Available [employer] - prod 19:02:47 56981 clopidogr el medicatio n Not available Not available Not available 08/25/20252024 90829 RxNorm Fatig ue, weak, no stren gth Not Available [facility]oc[facility] - External Data Service - prod 19:02:47 02530 simvastat in medicatio n Not available Not available Not available 08/25/20252011 03861 RxNorm Eyeli d swell ing Not Available [...] % 160.02 cm 16 /min 91 /min 97090.2 08 g 98.4 [degF] 121/74 mm[Hg] Not Available [facility] - production 18:33:28 Date Recorded Respiratory rate Body weight Heart rate Oxygen saturation Body height Body temperature Systolic And Diastolic Provider Name and Address Organization Details Last Updated DateTime 19 /min 34961.8 4 g 67 /min 97 % 162.56 cm 98.6 [degF] 124/66 mm[Hg] Not Available [facility] - production 21:31:08 Social History None recorded. Functional Status None recorded. Mental Status None recorded. Family History Nothing Reported. Medical History No medical history recorded. Gynecological HistoryNo gynecological history recorded. Obstetrics History GPAL:G 0 P 0 0 0 0 Past Encounters Encounter ID Performer Location Encounter Start Date Encounter Closed Date Diagnosis/Indication Diagnosis SNOMED-CT Code Diagnosis ICD10 Code Diagnosis IMO Codes Diagnosis Note [id number] Luis Fernando Barahona MD [facility] - [facility] [address] [place] [phone] 09/04/2024 21:31:00 09/08/2024 20:19:52 Chest pain 56178702 R07.9 [id number] CARLITOS RAHMAN MD [facility] [phone] 08/25/2025 18:33:26 08/25/2025 19:18:29 Syncope and collapse [id number] R55 62675 Health Concerns Section Related Observation LastModified by Organization Detai ls LastModified Time None Recorded Concern Status LastModified by Organization Details LastModified Time None Recorded Advance Directives Directive None Recorded Payers Insurance Date Sequence Insurance Name Policy Number Policy Lopez Covered Member ID Lopez Member ID Guarantor Name 08/25/2025 1 [facility] - DOS ON OR AFTER 2022 - DUAL ELIGIBLE - [facility] OPTIONS AND ONE CARE (MEDICARE REPLACEMENT/ADV ANTAGE - HMO) Kathy Steve [id number] Kathy Steve Notes Date Note Type Note Provider Name and Address Organization Details Recorded Time 09/04/2024 text/html [facility] Nurse Triage Notes (Loren Leigh - RN): Reason For Request: Patient has overall body pain, chest pain, and short of breath. Denies: History of Heart Attack, in the setting of active chest pain Active Chest pain, radiates to neck jaw and or arm Diaphoretic/Sweating Describes as c rushing Sudden onset of nausea/Vomiting and shortness of breath. Shortness of Breath Unable to speak in full sentences without distress Chief Complaints: Chest pain PMH: Hypertension, Chronic Pain, Hyperlipidemia, Anxiety Disorder Comments: Patient states she felt left sided chest pressure going to bed 3 days ago. Reports chest pressure is intermittent. No radiation to arm, jaw, neck or back. Denies dizziness, shortness of breath, N/V, or sweating. Denies cough, sore throat, fever, or body aches. Pain is not affected by taking a deep breath. No recent resp illness. Education provided on the response time and the member was advised to monitor reported s/s and seek emergency treatment if needed.09/03 @ 2012- Called to r/s visit this evening- No answer, Left VM with Author service- [place] Chemical Processing Technician Organization Information for IrizarryMarco gauthier Lorin KATHRYN Business Legal Name: [facility] Transportation Address: [address] [place] [address], [employer] Supervisor: Giancarlo Stokes MD CLIA No.: [id number] Chemical Processing Technician POC Test Results from IrizarryMarco gauthier Lorin KATHRYN EKG (19:57:21) EKG test performed. Attachments uploaded as part of this test result can be found under Documents section. .................... .................... .................... .................... .................... .................... .................... . Chemical Processing Technician Note From Marco Irizarry: Pt chief complaint today of chest pain/ burning while attempting to sleep. Pt states that this situation has been occurring nightly for x5 days only when she lays down to sleep. Pt states that the pain is I her left breast and Is unclear if it is deep or if it is more surface level. Pt stets that she does have a history of gerd and that sometimes she feels that it feels that same way. However sometimes she states that it feels nothing like this. Pt notes that she has x2 weeks prior to her visit started placid as well as Atorvastatin for high cholesterol. Pt also notes that she feels she is getting anxious and this may also be causing her symptoms. Pt is unclear on what to do at this time and is looking for a general assessment as well as possible treatment. Pt notes no sob, NVD, dizziness or fatigue. Pt allergies noted and in appropriate PCR tabNonneural focal exam, afebrile, vitals WNL, lungs clear bilaterally, benign abdominal assessment. No lower extremity edema. Positive csm, GCS of 15, CAOX4. 12 lead ecg shows sinus rhythm with no diagnostic markers for stemi. [facility] luis fernando barahona consulted.Pt and family informed of possible angina pectoris as well as treatments. Pt and family very aware that [facility] as well as [facility] medic encourage pt to continue taking her medications as prescribed and not to stop any of them. Pt and family encouraged to make an appointment with the PCP of the pt who can possibly refer to cardiology for further blood tests, or to contact an urgent med at their earliest convenience.Pt and family educated on red flag S&S and informed to call emergency services if any present.t .................... .................... .................... .................... .................... .................... .................... . [facility] Consulted: Luis Fernando Barahona .................... .................... .................... .................... .................... .................... .................... . Disposition: Fulfilled Luis Fernando Barahona MD [address], [place], [phone], [employer] 09/04/2024 21:41:26 08/25/2025 text/html ROS as noted in the HPI HPI: Kathy called into MS who obtained peanut vendor ID# [id number] and stated member had a fall and [...] bleeding. She denies taking any blood thinners. Undercoat Sprayer advised Kathy to go to Urgent care or ER to be evaluated, she refused Urgent care or ER for diagnostics at this time. I do not think I need X-rays at this time . She is asking for someone to come just check her out. She states she is using her hand fine . Undercoat Sprayer educated member on staying hydrated and when changing positions to rise very slow, Kathy verbalized understanding. Undercoat Sprayer informed her that an [facility] visit will be requested. .................... .................... .................... .................... .................... .................... .................... . [facility] Nurse Triage Notes (Vandana Teixeira): Chief Complaints: Dizziness, Falls, Headache PMH: Hypertension, Chronic Pain, Hyperlipidemia, Anxiety Disorder PMH Reviewed at 08/25/2025 - 15:51 (ET) Allergies Reviewed at 08/25/2025 - 15:51 (ET) Comments: HPI reviewed .................... .................... .................... .................... .................... .................... .................... . Chemical Processing Technician Note From Steffen Goddard: [facility] makes pt contact a 69 yo F CC of dizziness causing a fall. [facility] obtains vital signs. PT explains she got [...] and reactive. Stroke scale negative. Vitals WNL. [facility] contacts [facility] and explains above mentioned. [facility] recommends a full evaluation at the hospital due to the cc and events that transpired. [facility] contacts 911 who sends [facility]. [facility] is given pt hand off report and assumes care of pt. PT is to be [facility] to [facility]. [facility] clear. .................... .................... .................... .................... .................... .................... .................... . [facility] Consulted: Carlitos Rahman .................... .................... .................... .................... .................... .................... .................... . Disposition: Fulfilled CARLITOS RAHMAN MD [address], [place], [address], [employer], [facility] 08/25/2025 19:18:28 OBGyn Episode No OBEpisode recorded.
--- OUTSIDE RECORDS SUMMARY | 2025-08-25 21:14 | XMS_ITS | Clinical Summary ---
Author Organization [facility] [address] [place] [address] [place] [phone] Phone Care Team Providers Care Fish Salter Name Role Phone Elida Garcia MD Primary [...] (7.5 mg total) by mouth at bedtime. 05/21/20 23 Active clonazePAM (KlonoPIN) 1 mg tablet Take 1 tablet (1 mg total) by mouth at bedtime. 09/02/20 20 Active OMEGA-3 FATTY ACIDS ORAL Take 1 capsule by mouth 1 (one) time each day. Active latanoprost (XALATAN) 0.005 % ophthalmic solution INSTILL ONE DROP IN LEFT EYE EVERY NIGHT. 10/10/19 25 Active loratadine (CLARITIN) 10 mg tablet TAKE 1 TABLET BY MOUTH DAILY NEEDED FOR ALLERGIES. 90 tablet 12/01/19 25 Active lisinopriL (PRINIVIL,ZEST RIL) 5 mg tablet TAKE 1 TABLET BY MOUTH EVERY DAY 90 tablet 1 04/19/20 25 Active levothyroxine (SYNTHROID, LEVOTHROID) 50 mcg tablet Take 1 tablet (50 mcg total) by mouth 1 (one) time each day. 90 each 3 08/03/20 25 026 Active fluticasone propionate (FLONASE) 50 mcg/actuation nasal spray SPRAY 2 SPRAYS INTO INTO EACH NOSTRIL EVERY DAY SHAKE GENTLY. CLEAN TIP AND REPLACE CAP AFTER USE 16 mL 1 08/20/20 25 Active fluticasone propionate (FLONASE) 50 mcg/actuation nasal spray SPRAY 2 SPRAYS INTO EACH NOSTRIL EVERY DAY SHAKE GENTLY. CLEAN TIP AND REPLACE CAP AFTER USE. 16 mL 1 02/18/20 25 025 Discontinued levothyroxine (SYNTHROID, LEVOTHROID) 50 mcg tablet TAKE 1 TABLET BY MOUTH EVERY DAY 90 tablet 05/21/20 25 025 Discontinued(Re order) Active Problems Problem Noted Date Diagnosed Date [...] of medications. Based on the report from [facility] ER, could also be heartburn related. She [...] reassess her cholesterol levels. Assessment & Plan (08/03/2025 5:09 PM EST): Currently on not on medications. Patient has been reluctant to start cholesterol medications. She understands her elevated cardiovascular risk. Also following with cardiology. 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 Orders: Lipid panel with reflex to direct LDL; Future Nonalcoholic fatty liver disease 02/16/2010 Overview (06/19/2024): With mild elevation of liver enzymes Obesity 11/15/2009 Hypothyroidism 11/19/2008 Assessment & Plan (08/03/2025 5:09 PM EST): TSH has been stable. Currently on levothyroxine 50 mcg a day. Continue same medication. Will recheck levels. Orders: XR Shoulder 2+ Views Left; Future Comprehensive metabolic panel; Future Lipid panel with reflex to direct LDL; Future Thyroid stimulating hormone; Future Assessment & Plan (11/30/2024 1:41 PM EDT): [...] and metoprolol as prescribed. Assessment & Plan (08/03/2025 5:09 PM EST): Blood pressure is well-controlled. Currently on lisinopril 5 mg. Will continue same medication. Encouraged to follow low-salt diet and exercise. Assessment & Plan (11/30/2024 1:41 PM EDT): Assessment & Plan (09/17/2024 5:38 PM EST): Well-controlled today on current medications of lisinopril 5 mg-continue. Assessment & Plan (08/03/2024 9:13 AM EST): BP is well controlled on Lisinopril 5mg day. Recommeded to follow a low salt diet and exercise regularly. Orders: Comprehensive metabolic panel; Future Allergic rhinitis 12/27/2006 Encounters Date Type Department Care Team Description 08/04/2025 Results Follow-Up Adult [address] [phone] Elida Baez MD 08/03/2025 12:00 PM EST Lab Draw [address] Hypothyroidism, unspecified type; Mixed hyperlipidemia 08/03/2025 11:30 AM EST - 08/03/2025 11:59 PM EST Hospital Encounter [address] [phone] Hypothyroidism, unspecified type; Mixed hyperlipidemia Discharge Disposition: Home or Self Care 08/03/2025 11:30 AM EST Office Visit Adult Medicine [address] [phone] Elida Baez MD Encounter for general adult medical examination without abnormal findings (Primary Dx); Benign essential hypertension; Chronic left shoulder pain; Hypothyroidism, unspecified type; Mixed hyperlipidemia; Encounter for screening for osteoporosis; Postmenopausal; Advance care planning; Screen for colon cancer from Last 3 Months Immunizations Immunization Administration Dates Next Due Pneumococcal conjugate 13 va lent (Prevnar 13, PCV13) 2mo and older 01/20/2019 Pneumococcal conjugate 20 va lent (Prevnar 20, PCV 20) 2mo and older 01/03/2023 Pneumococcal polysaccharide 23 valent (Pneumovax 23) 2yo and older 05/10/2015 Tdap Tetanus diptheria acell ular pertussis (Boostrix; Adacel) 7yo and older 01/03/2023,07/23/2011 Zoster Live 04/20/2015 Surgical History Surgery Date Site/Laterality Comments COLONOSCOPY 10/25/2008 PROCEDURE: [place] COLONOSCOPY STOMA DX INCLUDING COLLJ SPEC SPX; COMMENT: Up to cecum, regular preparation, sigmoid diverticulosis, otherwise normal colon exam ESOPHAGOGASTRODUODENOSCOPY 02/01/2011 PROCEDURE: [place] ESOPHAGOGASTRODUODENOSCOPY TRANSORAL DIAGNOSTIC; COMMENT: normal; pos H. [...] tension) Insomnia 01/15/2008 DX:Insomnia; COM MENT: F/u [facility]. Nonalcoholic fatty liver disease 02/16/2010 DX:Nonalcoholic fatty [...] you may not have stable housing? No 08/03/2025 Food Access & Nutrition Answer Date Rec orded Do you have access to a vari ety of food including fruits and vegetables? Yes 08/03/2025 Access to Healthcare Answer Date Record ed Within the last 3 months, ho w many times did you visit the emergency department for your medical care? 0 08/03/2025 Health Literacy Answer Date Recorded How often do you need to hav e someone help you when you read instructions, pamphlets, or other written material from your doctor or pharmacy? Never 08/03/2025 Caregiver: How often do you need to have someone help you when you read instructions, pamphlets, or other written material from your doctor or pharmacy? Not on file 08/03/2025 Financial Risk Answer Date Recorded How hard is it for you to pa y for the very basics like food, housing, medical care, and air conditioning / heating? Not very hard 08/03/2025 Transportation Answer Date Recorded Has the lack of transportati on kept you from meetings, work, or from getting things needed for daily living? No Has the lack of transportati on kept you from medical appointments or from getting medications? No 08/03/2025 Social Isolation Answer Date Recorded How often do you feel lonely or isolated from th ose around you? Never 08/03/2025 Food Risk Answer Date Recorded Within the past 12 months we worried whether our food would run out before we got money to buy more. Never true 08/03/2025 Within the past 12 months th e food we bought just didn't last and we didn't have money to get more. Never true 08/03/2025 Dependent Care Answer Date Recorded Do you need help finding or paying for care for your loved ones. For example, childcare teacher or elderly care for an older adult? No 08/03/2025 Education Answer Date Recorded Do you think completing more education or training, like finishing a GED, going to college, or learning a trade, would be helpful for you? No 08/03/2025 Employment and Income Answer Date Recor ded During the last four weeks, have you been actively looking for work? No 08/03/2025 Living Situation Answer Date Recorded What is your living situation? Unrecognized valu e 08/03/2025 Comments No Sex and Gender Information Value Date Recorded Sex Assigned at Not on file Legal Sex Female 2:04 AM EST Gender Identity Not on file Sexual Orientation Not on file Last Filed Vital Signs Vital Sign Reading Time Taken Comments Blood Pressure 128/81 08/03/2025 11:12 AM EST Pulse 88 08/03/2025 11:12 AM EST Temperature 35.9 C (96.7 F) 08/03/2025 11:12 AM EST Respiratory Rate 16 08/03/2025 11:12 AM EST Oxygen Saturation 96% 08/03/2025 11:12 AM EST Inhaled Oxygen Concentration - - Weight 68.7 kg (151 lb 6.4 oz) 08/03/2025 11:12 AM EST Height 160 cm (5' 3 ) 11/30/2024 1:08 PM EDT Body Mass Index 26.82 11/30/2024 1:08 PM EDT Plan of Treatment Upcoming Encounters Date Type Department Care Team (Late st Contact Info) Description 09/15/2025 2:00 PM EST Office Visit Orthopedics - [place] [address] [place] [phone] Aram Noble PA [address] [place] [phone] Health Maintenance Due Date Last Done Comments Drug Screen 1955 Non-Opioid Controlled Substance Agreement 1955 Zoster Vaccines (2 of 3) 06/15/2015 04/20/2015 Colorectal Cancer Screening: Colonoscopy 06/10/2024 06/10/2019 Osteoporosis Screening (Bone Density Screening) 10/24/2024 10/24/2022, 05/05/2019 COVID-19 Vaccine ( season) 2025 05/27/2021, 05/06/2021 Breast Cancer Screening 04/20/2026 04/20/2025 Falls Risk Assessment 08/03/2026 08/03/2025 , 07/31/2024, 07/30/2023 Hypertension/CHF/CAD Annual BMP Blood Test 08/03/2026 08/03/2025, 08/03/2024, 03/11/2024, Additional history exists Medicare Annual Wellness Visit 08/03/2026 08/03/2025, 07/31/2024 Social Influencers of Health Screening 08/03/2026 08/03/2025, 07/31/2024 RSV Immunization Adult Patients (1 - 1-dose 75+ series) 2028 Cholesterol Screening (Lipid Panel) 08/03/2030 08/03/2025, 11/30/2024, 08/03/2024, Additional history exists DTaP,Tdap,and Td Vaccines (3 - Td or Tdap) 01/03/2033 01/03/2023, 07/23/2011 Hepatitis C Screening Completed 02/10/2010 Pneumococcal Vaccine: 50+ Years Completed 01/03/2023, 01/20/2019, 05/10/2015 Depression Screening Completed 08/03/2025, 03/05/20 HIB Vaccines Aged Out No longer eligi [...] Procedure Name Priority Date/Time Associated Diagnosis Comments COMPREHENSIVE METABOLIC PANEL Routine 08/03/2025 12:00 PM EST Hypothyroidism, unspecified type Mixed hyperlipidemia LIPID PANEL WITH REFLEX TO DIRECT LDL Routine 08/03/2025 12:00 PM EST Hypothyroidism, unspecified type Mixed hyperlipidemia THYROID STIMULATING HORMONE Routine 08/03/2025 12:00 PM EST Hypothyroidism, unspecified type Mixed hyperlipidemia XR SHOULDER 2+ VIEWS LEFT Routine 08/03/2025 11:45 AM EST Hypothyroidism, unspecified type Mixed hyperlipidemia MG MAMMO DIGITAL DIAGNOSTIC BILAT Routine 04/20/2025 8:13 AM EDT DEPRESSION SCREENING Routine 03/05/2024 FALLS RISK ASSESSMENT Routine 07/30/2023 DXA BONE DENSITY STUDY 1+ SITS AXIAL SKEL Routine 10/24/2022 2:35 PM EST Other specified disorders of bone density and structure, unspecified site COLONOSCOPY Routine 06/10/2019 HEPATITIS C SCREENING Routine 02/10/2010 from Last 3 Months or Most Recently Relevant to Health Maintenance Results * (ABNORMAL) Lipid panel with reflex to direct LDL (08/03/2025 12:00 PM EST) Cholesterol 191 0 - 200 mg/dL 08/03/2025 4:35 PM EST [facility] Triglycerides 128 0 - 150 mg/dL 08/03/2025 4:35 PM EST [facility] HDL 52 >=40 mg/dL 08/03/2025 4:35 PM [facility] LDL Calculated 113(H) 0 - 100 mg/dL 08/03/2025 4:35 PM [facility] Comment:Estimated LDL Calcul ated using equation: Total cholesterol - HDL cholesterol - (Triglycerides/5) VLDL Cholesterol Rasheed 25.6 mg/dL 08/03/2025 4:35 PM [facility] Non HDL Chol. (LDL+VLDL) 139 <145 mg/dL 08/03/2025 4:35 PM EST [facility] Chol/HDL Ratio 3.7 0.0 - 4.4 08/03/2025 4:35 PM EST [facility] Blood Venous blood specimen / Unknown Venipuncture / Unknown 08/03/2025 12:00 PM EST 08/03/2025 12:00 PM EST us Elida Garcia MD LAB BLOOD ORDERABL ES Final Result [facility] [address] [place] [address], [place] [phone] * Thyroid stimulating hormone (08/03/2025 12:00 PM EST) TSH 1.99 0.40 - 4.00 mcIU/mL 08/03/2025 4:36 PM EST [facility] Blood Venous blood specimen / Unknown Venipuncture / Unknown 08/03/2025 12:00 PM EST 08/03/2025 12:00 PM EST us Elida Garcia MD LAB BLOOD ORDERABL ES Final Result [facility] [address] [place] [address], [place] [phone] * Comprehensive metabolic panel (08/03/2025 12:00 PM EST) Sodium 143 133 - 145 mmol/L 08/03/2025 4:35 PM EST [facility] Potassium 4.0 3.5 - 5.5 mmol/L 08/03/2025 4:35 PM EST [facility] Chloride 104 96 - 110 mmol/L 08/03/2025 4:35 PM EST [facility] CO2 29 21 - 32 mmol/L 08/03/2025 4:35 PM [facility] Anion Gap 10 3 - 11 08/03/2025 4:35 PM [facility] Glucose 98 70 - 100 mg/dL 08/03/2025 4:35 PM [facility] BUN 16 5 - 25 mg/dL 08/03/2025 4:35 PM [facility] Creatinine 0.85 0.50 - 1.10 mg/dL 08/03/2025 4:35 PM [facility] eGFR 73 >=60 mL/min/1. 73m2 08/03/2025 4:35 PM [facility] Comment:Calculation based on the Chronic Kidney Disease Epidemiology Collaboration (CKD-EPI) equation refit without adjustment for race. BUN/Creatinine Ratio 18.8 08/03/2025 4:35 PM [facility] Calcium 9.3 8.5 - 10.5 mg/dL 08/03/2025 4:35 PM [facility] AST (SGOT) 23 10 - 42 unit/L 08/03/2025 4:35 PM [facility] ALT (SGPT) 17 10 - 60 unit/L 08/03/2025 4:35 PM [facility] Alkaline Phosphatase 81 42 - 121 unit/L 08/03/2025 4:35 PM [facility] Total Protein 7.3 6.0 - 8.0 g/dL 08/03/2025 4:35 PM [facility] Albumin 4.3 3.2 - 5.0 g/dL 08/03/2025 4:35 PM [facility] Total Bilirubin 0.5 0.0 - 1.4 mg/dL 08/03/2025 4:35 PM [facility] Blood Venous blood specimen / Unknown Venipuncture / Unknown 08/03/2025 12:00 PM EST 08/03/2025 12:00 PM EST Elida Garcia MD LAB BLOOD ORDERABL ES Final Result [facility] [address] [place] [address], * XR Shoulder 2+ Views Left (08/03/2025 11:45 AM EST) Anatomical Region Laterality Modality Upper Extremities, Shoulder Left Radi ographic Imaging 08/03/2025 5:21 PM EST Impressions 08/03/2025 5:22 PM EST No acute fracture or dislocation of the left shoulder. Calcific tendinitis and calcific bursitis -------- FINAL REPORT -------- Dictated By: Marcella Velarde Dictated Date: 08/03/2025 17:21 ET Assigned Physician: Marcella Velarde Reviewed and Electronically Signed By: Marcella Velarde Signed Date: 08/03/2025 17:22 ET Workstation ID: [id number] Transcribed By: Self Edit Transcribed Date: 08/03/2025 17:21 ET Narrative 08/03/2025 5:22 PM EST HISTORY: shoulder pain TECHNIQUE: 4 views of the left shoulder COMPARISON: None FINDINGS: No acute fracture or dislocation is seen. There is no evidence of malalignment. The AC joint is intact. Rounded calcifications adjacent to the greater tuberosity. Procedure Note Marcella Velared MD - 08/03/2025 HISTORY: shoulder pain TECHNIQUE: 4 views of the left shoulder COMPARISON: None FINDINGS: No acute fracture or dislocation is seen. There is no evidence ofmalalignment. The AC joint is intact. Rounded calcifications adjacent tothe greater tuberosity. IMPRESSION: No acute fracture or dislocation of the left shoulder. Calcific tendinitis and calcific bursitis -------- FINAL REPORT -------- Dictated By: Marcella Velarde Dictated Date: 08/03/2025 17:21 ET Assigned Physician: Marcella Velarde Reviewed and Electronically Signed By: Marcella Velarde Signed Date: 08/03/2025 17:22 ET Workstation ID: [id number] Transcribed By: Self Edit Transcribed Date: 08/03/2025 17:21 ET Elida Garcia MD [facility] XR PROCEDURES Final Result * MG Mammo Digital Diagnostic bilat (04/20/2025 8:13 AM EDT) Anatomical Region Laterality Modality Breast Bilateral Mammography Historical Provider [facility] BI PROCEDURES Final R esult * Depression Screening (03/05/2024) Pathologist [facility] Depression Screening ABSTRACTED [facility] Provider HEALTH MAINTENANCE Final Result * Falls Risk Assessment (07/30/2023) Pathologist [facility] Falls Risk Assessment ABSTRACTED Result [facility] Provider HEALTH MAINTENANCE Final Result * DXA [...] (World Health Organization Fracture Risk Assessment) [facility] Department of Internal Medicine recommends using [...] alternative screening schedule based on rica Tafoya., [facility] September 27, 2011 for patients with [...] years. (World HealthOrganization Fracture Risk Assessment) [facility] Department of Internal Medicine recommendsusing National [...] screening schedule based on vernon Tafoya al., [facility] for patients with osteopenia (based on hip BMD T-score) is as follows: * advanced osteopenia (T scores -2.00 to -2.49), BMD testing every year * moderate osteopenia (T scores -1.50 to -1.99), BMD testing every 5years mild osteopenia or normal BMD (T scores -1.50 and higher), BMD testingevery 15 years Abby DAVISON [facility] DXA PROCEDURES Final Result * Colonoscopy (06/10/2019) [facility] Colonoscopy no interpretation , abstracted Anatomical Region Laterality Modality Other Historical Provider HEALTH MAINTENANCE Final Result * Hepatitis C Screening (02/10/2010) [facility] Hepatitis C Screening ABSTRACTED Historical Provider HEALTH MAINTENANCE Final Result from Last 3 Months or Most Recently Relevant to Health Maintenance Insurance [employer] MEDICARE Member Subscriber Plan / Payer (Ef fective 2019-Present) Name:Kathy Steve Relation to Subscriber:Self Name:Kathy Steve Payer ID:[id number] Group ID:[id number] Type:Not on file Address: [place] [facility] [place] [phone] Care Teams Fish Salter Relationship Specialty Start Date End Date Elida Garcia MD [address] [place] [phone] PCP - General Internal Medicine 09/15/24
== END 2025-08-25 20:51 | disposition home or self-care (01) ==
PROVIDERS: Emergency Provider Emergency Medicine
DX: H81.399 Other peripheral vertigo, unspecified ear (principal); R94.31 Abnormal electrocardiogram [ECG] [EKG]; I10 Essential (primary) hypertension
CPT/HCPCS: 36415; 80053; 83735; 84484; 85025; 93005; 99283; 99284

== ENCOUNTER → 2025-08-25 19:32 | Outpatient (BNV) | payer OTHER, SELFPAY | PROVIDERS: Emergency Provider Emergency Medicine; Visit Provider Internal Medicine Cardiovascular Disease | DX: I25.2 Old myocardial infarction (principal) | CPT/HCPCS: 93010 ==